=== PATIENT | female | born 1940 | race Caucasian/White ===

== ENCOUNTER 2020-01-04 06:36 | Outpatient (CLI) | payer MEDICARE, SELFPAY ==
[2020-01-04 08:14] LABS: Alanine Aminotransferase 25 U/L (4-35); Albumin Level 4.2 g/dL (3.5-5.1); Alkaline Phosphatase 51 U/L (38-126); Aspartate Amino Transferase 31 U/L (14-36); Bilirubin,Total 0.5 mg/dL (0.2-1.3); Blood Urea Nitrogen 15 mg/dL (7-17); Calcium 9.2 mg/dL (8.4-10.2); Carbon Dioxide 29 mmol/L (22-30); Chloride 104 mmol/L (98-107); Cholesterol 194 mg/dL (0-200); Estimated Glomerular Filt Rate > 60; Glucose 89 mg/dL (65-105); HDL Direct 54 mg/dL; Sodium 139 mmol/L (137-145); Triglycerides 71 mg/dL (<150)
[2020-01-04 08:25] LABS: LDL Cholesterol Direct 111 mg/dL
[2020-01-04 10:02] LABS: Vitamin D 25 Hydroxy 77.7 ng/mL
== END 2020-01-04 06:37 | disposition home or self-care (01) ==
PROVIDERS: PCP Emergency Medicine; Visit Provider Emergency Medicine
DX: E78.5 Hyperlipidemia, unspecified (principal); E55.9 Vitamin D deficiency, unspecified
CPT/HCPCS: 36415; 80053; 80061; 82306

== ENCOUNTER 2020-07-08 07:26 | Outpatient (CLI) | payer MEDICARE, SELFPAY ==
[2020-07-08 08:12] LABS: Alanine Aminotransferase 25 U/L (4-35); Albumin Level 4.4 g/dL (3.5-5.1); Alkaline Phosphatase 55 U/L (38-126); Anion Gap 5 mmol/L (8-16); Aspartate Amino Transferase 30 U/L (14-36); Bilirubin,Total 0.4 mg/dL (0.2-1.3); Blood Urea Nitrogen 11 mg/dL (7-17); Calcium 9.4 mg/dL (8.4-10.2); Carbon Dioxide 27 mmol/L (22-30); Chloride 104 mmol/L (98-107); Cholesterol 214 mg/dL (0-200); Estimated Glomerular Filt Rate > 60; Glucose 106 mg/dL (65-105); HDL Direct 59 mg/dL; Potassium 4.3 mmol/L (3.4-5.0); Sodium 136 mmol/L (137-145); Triglycerides 113 mg/dL (<150)
[2020-07-08 08:20] LABS: Vitamin D 25 Hydroxy 68.3 ng/mL
[2020-07-08 08:23] LABS: LDL Cholesterol Direct 127 mg/dL
== END 2020-07-08 07:27 | disposition home or self-care (01) ==
LOC: ANHLAB 07:29
PROVIDERS: PCP Emergency Medicine; Visit Provider Emergency Medicine
DX: E78.5 Hyperlipidemia, unspecified (principal); E55.9 Vitamin D deficiency, unspecified
CPT/HCPCS: 36415; 80053; 80061; 82306

== ENCOUNTER 2021-02-06 06:39 | Outpatient (CLI) | payer MEDICARE, SELFPAY ==
[2021-02-06 08:17] LABS: Alanine Aminotransferase 23 U/L (4-35); Albumin Level 4.1 g/dL (3.5-5.1); Alkaline Phosphatase 50 U/L (38-126); Anion Gap 4 mmol/L (8-16); Aspartate Amino Transferase 35 U/L (14-36); Bilirubin,Total 0.5 mg/dL (0.2-1.3); Blood Urea Nitrogen 18 mg/dL (7-17); Calcium 9.2 mg/dL (8.4-10.2); Carbon Dioxide 31 mmol/L (22-30); Chloride 105 mmol/L (98-107); Estimated Glomerular Filt Rate > 60; Glucose 94 mg/dL (65-105); Potassium 4.4 mmol/L (3.4-5.0); Sodium 140 mmol/L (137-145)
[2021-02-09 15:14] LABS: Vitamin D 1,25 (OH)2 Total 46 pg/mL (18-72); Vitamin D2 1,25 (OH)2 <8 pg/mL; Vitamin D3 1,25 (OH)2 46 pg/mL
== END 2021-02-06 06:40 | disposition home or self-care (01) ==
PROVIDERS: PCP Emergency Medicine; Visit Provider Emergency Medicine
DX: E55.9 Vitamin D deficiency, unspecified (principal); E78.5 Hyperlipidemia, unspecified
CPT/HCPCS: 36415; 80053; 82652

== ENCOUNTER 2021-03-08 07:33 | Outpatient (CLI) | payer MEDICARE, SELFPAY ==
--- NOTE | ~2021-03-08 | MM_ITS ---
EXAMINATION: MM screening [facility] BI w loren HISTORY: Screening mammogram TECHNIQUE: Craniocaudal and mediolateral oblique 3-D tomosynthesis images were obtained and synthetic 2-D images were generated. CAD analysis was submitted and interpreted. COMPARISON: 01/19/2019, 11/26/2017, 11/06/2016 BREAST PARENCHYMAL COMPOSITION: There are scattered areas of fibroglandular density. FINDINGS: There is no evidence of suspicious mass, calcification, or architectural distortion to sugg est malignancy in either breast. There has been no suspicious interval change. IMPRESSION: 1. No mammographic evidence of malignancy. 2. Recommend routine screening mammography in one year. BI-RADS Category 1: Negative Reviewed, dictated and finalized at location A.
--- NOTE | ~2021-03-08 | DEXA_ITS ---
Bone Density Report Name: Ann Marie Acuna Age: 80 Sex: Female Ethnicity: White Date of : 1940 Indication: osteopenia; monitoring treatment; height loss; prior fracture; Referring Provider: CAMRON MARIN Study: Bone densitometry was performed. Exam Date: March 08, 2021 Accession number: [id number] Bone Density: Region BMD T-score Z-score Classification AP Spine (L1-L4) 0.865 -1.7 0.9 Osteopenia Femoral Neck (Left) 0.506 -3.1 -0.9 Osteoporosis Total Hip (Left) 0.696 -2.0 -0.1 Osteopenia Total Hip Bilateral Avg 0.680 -2.2 -0.2 Osteopenia Femoral Neck (Right) 0.492 -3.2 -1.0 Osteoporosis Total Hip (Right) 0.663 -2.3 -0.3 Osteopenia World Health Organization criteria for BMD impression classify patients as: Normal (T-score at or above -1.0), Osteopenia (T-score between -1.0 and -2.5), or Osteoporosis (T-score at or below -2.5). 10-year Fracture Risk: FRAX not reported because: Some T-score for Spine Total or Hip Total or Femoral Neck at or below -2.5 Treated for osteoporosis Previous Exams: Region Exam Age BMD T-score BMD Change BMD Change Date g/cm2 vs Baseline vs Previous AP Spine(L1-L4) 03/08/2021 80 0.865 -1.7 0.233(36.9%)# 0.059(7.3%)* 01/19/2019 78 0.806 -2.2 0.174(27.6%)# 0.017(2.1%) 11/06/2016 75 0.789 -2.3 0.158(24.9%)# 0.071(9.9%)# 05/13/2014 73 0.718 -3.0 0.086(13.7%)* 0.086(13.7%)* 02/06/2012 71 0.632 -3.8 Total Hip(Left) 03/08/2021 80 0.696 -2.0 -0.010(-1.5%)# -0.030(-4.1%)* 01/19/2019 78 0.726 -1.8 0.020(2.8%)# -0.012(-1.7%) 11/06/2016 75 0.739 -1.7 0.032(4.5%)# -0.010(-1.3%)# 05/13/2014 73 0.748 -1.6 0.042(5.9%)* 0.042(5.9%)* 02/06/2012 71 0.707 -1.9 Total Hip(Right) 03/08/2021 80 0.663 -2.3 -0.014(-2.1%)# -0.032(-4.6%)* 01/19/2019 78 0.695 -2.0 0.018(2.7%)# -0.017(-2.3%) 11/06/2016 75 0.712 -1.9 0.035(5.1%)# 0.006(0.9%)# 05/13/2014 73 0.706 -1.9 0.028(4.2%)* 0.028(4.2%)* 02/06/2012 71 0.677 -2.2 *Denotes significance at 95% confidence level, LSC for AP Spine = 0.022 g/cm2, LSC for Total Hip = 0.027 g/cm2 Clinical Information Provided by Patient: Has had a low trauma fracture Is being treated for osteoporosis Has used the following medications: Fosamax (i.e. alendronate), Vitamin D Patient maximum height was 60.5 Menopause Age: 54 Onset of menses at age 13 Number of children 2 Impression: The oskar
== END 2021-03-08 07:34 | disposition home or self-care (01) ==
LOC: ANHIMG 07:37
PROVIDERS: PCP Emergency Medicine; Visit Provider Emergency Medicine
DX: Z12.31 Encounter for screening mammogram for malignant neoplasm of breast (principal); Z78.0 Asymptomatic menopausal state; M85.89 Other specified disorders of bone density and structure, multiple sites; M81.0 Age-related osteoporosis without current pathological fracture
CPT/HCPCS: 77063; 77067; 77080

== ENCOUNTER 2021-03-22 08:06 | Observation (INO) | payer OTHER, MEDICARE, SELFPAY ==
[2021-03-22] VITALS (8 sets, daily range): BP systolic 108–166; BP diastolic 63–93; PULSE 61–85; RESP 14–18; TEMP 36.4–36.6; O2SAT 93–98; BMI 24.4
--- NOTE | ~2021-03-22 | XR_ITS ---
EXAMINATION: XR hip LT min 3V w AP pelvis DATE: 03/22/2021 08:31 INDICATION: Left hip pain. Fall. TECHNIQUE: An anteroposterior view of the pelvis and 3 views of left hip were obtained. COMPARISON: None. FINDINGS: There is dextroscoliosis and moderate spondylosis of lumbar spine. There are fractures of l eft superior and inferior pubic rami. There is mild osteoarthritis of hips. Calcifications in the pel vis are likely from uterine fibroids. IMPRESSION: 1. Fractures of left superior and inferior pubic rami. 2. Mild osteoarthritis of the hips. Reviewed, dictated and finalized at location B.
--- NOTE | 2021-03-22 08:17 | ED.FALL ---
HPI - Fall General Chief Complaint: Fall Stated Complaint: fall- left hip pain Time Seen by Provider: 03/22/21 08:17 Source: patient Mode of arrival: wheelchair Limitations: no limitations History of Present Illness HPI Narrative: Patient is a 80-year-old female with a history of hypertension who presents for evaluation of left leg pain. Patient states that she was walking through [employer] this morning when a box that was sticking out into the aisle caused her to trip, losing her footing, and landing on her left hip. Patient reports pain in the left upper leg that is sharp, aching in nature and worse with movement. She denies any difficulty moving the knee, or pain in the knee joint. No lower back pain. No prodromal symptoms prior to the fall such as chest pain, shortness of breath or lightheadedness. Patient currently denies wanting any medication for pain, because pain is controlled as long as she is not moving. She can actively flex and extend the left leg without limitation. She denies any numbness or weakness. Patient denies head trauma or loss of consciousness. Related Data Home Medications Medication Instructions Recorded Confirmed Vitamin D3 2,000 unit BYMOUTH DAILY 08/30/19 08/30/19 omega 6-hoa-kjq-fish oil [Fish Oil] 1 cap PO DAILY 08/30/19 08/30/19 Allergies Allergy/AdvReac Type Severity Reaction Status Date / Time No Known Allergies Allergy Mild Verified 03/22/21 08:19 Review of Systems Review of Systems: Narrative: CONSTITUTIONAL: Denies fever CARDIOVASCULAR: Denies chest pain RESPIRATORY: Denies cough or dyspnea. GASTROINTESTINAL: Denies abdominal pain SKIN: Denies rash MUSCULOSKELETAL: Denies back pain, reports left upper leg pain NEUROLOGIC: Denies headache [facility] Past Medical History Medical History Vitamin D deficiency disease Family History Family History Mother Cerebrovascular accident, Onset Age: 84 Father Family history of tuberculosis, Onset Age: 57 Family history of liver disease, Onset Age: 57 Social History Social History Smoking status: Never smoker Alcohol intake: never Gender identity (if verbalized by the patient): Female Exam Narrative: Exam Narrative: GENERAL: Awake, alert, conversant HEAD: Normocephalic, atraumatic. EYES: PERRLA and EOMI. ENT: Nares clear, no rhinorrhea or epistaxis. Mucous membranes moist. NECK: Supple. CHEST: No respiratory distress, breathing even and non labored HEART: Regular rate, sinus rhythm ABDOMEN:Non distended, non tender EXTREMITIES: Normal range of motion. No edema. No limb length discrepancy. DP pulses are 2+ bilaterally. The left extremity is warm and well-perfused. No ecchymoses. No deformity. Pelvis is stable to anterior lateral compression, however there is pain with palpation. Patient has full flexion and extension of the left knee and left hip without limitation. There is pain with active range of motion. SKIN: Warm, dry, no rash. NEURO:No focal deficits. Alert and oriented x3 Course Vital Signs Vital signs: Vital Signs Temperature 36.4 C 03/22/21 08:15 Pulse Rate 72 03/22/21 08:15 Respiratory Rate 18 03/22/21 08:15 Blood Pressure 141/71 H 03/22/21 08:15 Pulse Oximetry 93 03/22/21 08:15 Temperature 36.4 C 03/22/21 08:15 Pulse Rate 64 03/22/21 15:56 Respiratory Rate 18 03/22/21 15:56 Blood Pressure 131/63 03/22/21 15:56 Pulse Oximetry 93 03/22/21 15:56 MDM - Fall MDM Narrative Medical decision making narrative: Patient presented for evaluation after mechanical fall at a nearby hardware store. Patient without any other prodromal symptoms. Patient with good range of motion on exam but this does elicit pain. Patient left extremity is neurovascularly intact, pelvis is stable however there i
[2021-03-22] MEDS: oxyCODONE/ACETAMINOPHEN (*CRX) 5-325 MG TABLET 1 TABLET PO (10:48)
[2021-03-22] MEDS: ONDANSETRON HCL ODT 4 MG TABLET PO (10:48)
[2021-03-22] MEDS: KETOROLAC (*BKC) 60 MG/2 ML VIAL 30 MG IM (10:48)
--- NOTE | 2021-03-22 10:48 | PCCCNOTE ---
Clinicals faxed to [facility] - patient mentioned this facility by name, otherwise she doesn't know any places and does not care where she goes
--- NOTE | 2021-03-22 10:59 | PCCCNOTE ---
clinicals faxed to [facility]
[2021-03-22 13:47] LABS: EDCOVIDSCREEN Negative (Negative)
[2021-03-22] MEDS: IBUPROFEN IV 800 MG/200 ML 800 MG/200 ML BAG 400 MG IVPB (17:45)
--- NOTE | 2021-03-22 19:24 | PC.NURSE ---
Report to ANETTE Watts. pt admitted to 259.
--- NOTE | 2021-03-22 21:30 | PM.IMHP ---
H&P: HPI History of Present Illness Date/Time: 03/22/21 21:30 female patient who came to the emergency room to be evaluated for left leg pain. The patient had been in [employer] who when she tripped over a box it was in the aisle of the store. The patient tripped over the box and landed on her left hip. The patient stated that she was not able to get up and stand up. She complained of severe left pain she said it radiated up into her pelvic area. She had no fever chills. No syncopal episode no dizziness. No lower back pain. She said that she did not hit her head or lose consciousness. No shortness of breath. She had no chest pain or shortness breath prior to tripping. Hip and pelvis x-ray was read as fractures of the left superior and inferior pubic rami. Mild osteoarthritis of the hips. The patient was recently diagnosed with osteoporosis as well. The patient is really wanting to go home but she is home by herself most the time. She has a son that lives with her but he is not always there. She has a son that lives down the street from her but he has to work during the day. The patient was given Percocet, Zofran, Toradol and ibuprofen in the emergency room. There was an attempt to place the patient into rehab but this was not achievable today. The patient is being admitted to be evaluated for rehab since she is not able to ambulate with the pelvic fracture. The patient would prefer to go home but feels that she will not be able to care for herself. The patient is being admitted to observation status on the date of service of 03/22/2021. Chief Complaint: Left hip pain after fall Review of Systems Review of Systems: All systems reviewed & are unremarkable except as noted in HPI and below Constitutional: Constitutional: Reports as per HPI and Reports no additional constitutional complaints Eyes: Eyes: Reports as per HPI and Reports no additional eye complaints ENT: Reports system reviewed and no additional complaints, except as documented and Reports Normal hearing present Cardiovascular: Cardiovascular: Reports no additional cardiovascular complaints Respiratory: Respiratory: Reports no additional respiratory complaints and Reports no additional respiratory complaints Gastrointestinal: Gastrointestinal: Reports as per HPI and Reports no additional gastrointestinal complaints Musculoskeletal: Musculoskeletal: Reports no additional musculoskeletal complaints Integumentary/Breasts: Skin/Breast: Reports system reviewed and no additional complaints, except as docu and Reports as per HPI Neurologic: Reports system reviewed and no additional complaints, except as documented, Reports as per HPI and Reports Normal hearing present Psychiatric: Psychiatric: Reports no additional psychiatric complaints and Reports as per HPI Endocrine: Endocrine: Reports no additional endocrine complaints Hematologic/Lymphatic: Hematologic/Lymphatic: Reports no additional hematologic/lymphatic complaints Allergic/Immunologic: Allergic/Immunologic: Reports no additional allergic/immunologic complaints PMFSH Past Medical History Medical History (Updated 03/22/21 @ 21:35 by Fidelina Peacock NP) Left wrist fracture Osteoporosis Vitamin D deficiency disease Surgical History Surgical History (Updated 03/22/21 @ 21:39 by Fidelina Peacock NP) H/O partial thyroidectomy Family History Family History Mother Cerebrovascular accident, Onset Age: 84 Father Family history of tuberculosis, Onset Age: 57 Family history of liver disease, Onset Age: 57 Social History Social History (Updated 03/22/21 @ 21:36 by Fidelina Peacock NP) Social History: The patient has 2 sons. She worked for [employer] in [facility] and is retired. The patient has 1 son living with her but is often times not at home. And another son that lives down the street from her. The
--- NOTE | 2021-03-22 21:36 | ADMGEN ---
This patient, Ann Marie Acuna, was admitted to 2 Medical Room 259-01. Patient/family oriented to hospital policies and general routines including ID bracelet, bed and alarms, visiting hours, pain management, procedures, bathroom and other care routines, personal items, smoking policy, room service/diet, and visiting hours. Information on how to activate the Rapid Response Team has been discussed. Patient/Family are encouraged to report perceived risks to care and to ask questions if they do not understand what they are told or what they should do.
[2021-03-23] MEDS: oxyCODONE/ACETAMINOPHEN (*CRX) 5-325 MG TABLET 1 TABLET PO ×2 (04:59→20:26)
[2021-03-23 06:00] VITALS: BP 124/52; PULSE 70; RESP 18; TEMP 36.8; O2SAT 97
[2021-03-23 06:02] LABS: Basophils Absolute Auto 0.1 K/mm3 (0.0-0.1); Basophils Percent Auto 1.1 % (0.2-1.2); Eosinophils Absolute Auto 0.1 K/mm3 (0-0.3); Eosinophils Percent Auto 1.3 % (0-4.4); Hematocrit 42.8 % (37.0-47.0); Hemoglobin 13.6 g/dL (12.0-15.0); Immature Granulocyte Absolute 0.08 K/mm3 (0.00-0.031); Immature Granulocyte Percent A 0.8 % (0-0.5); Lymphocytes Absolute Auto 2.29 K/mm3 (0.9-3.2); Lymphocytes Percent Auto 22.5 % (18.3-44.2); Mean Corpuscular HGB Conc 31.8 g/dl (32-36); Mean Corpuscular Hemoglobin 30.7 pg (26-34); Mean Corpuscular Volume 96.6 fl (80-100); Mean Platelet Volume 11.7 fl (7.4-10.4); Monocytes Absolute Auto 0.8 K/mm3 (0.1-0.6); Monocytes Percent Auto 7.7 % (2.6-8.5); Neutrophils Absolute Auto 6.8 K/mm3 (1.3-6.7); Neutrophils Percent Auto 66.6 % (45.5-73.1); Platelet Count Result 274 k/mm3 (150-375); Red Blood Count 4.43 M/mm3 (4.2-5.4); Red Cell Distribution Width 14.2 % (11.5-14.5); White Blood Count 10.2 K/mm3 (4.5-10.0)
[2021-03-23 06:16] LABS: Alanine Aminotransferase 21 U/L (4-35); Albumin Level 4.2 g/dL (3.5-5.1); Alkaline Phosphatase 46 U/L (38-126); Anion Gap 7 mmol/L (8-16); Aspartate Amino Transferase 39 U/L (14-36); Bilirubin,Total 1.1 mg/dL (0.2-1.3); Blood Urea Nitrogen 17 mg/dL (7-17); Calcium 8.8 mg/dL (8.4-10.2); Carbon Dioxide 28 mmol/L (22-30); Chloride 105 mmol/L (98-107); Estimated CRCL calculation 32 ml/min; Estimated Glomerular Filt Rate > 60; Glucose 106 mg/dL (65-105); Magnesium 1.9 mg/dL (1.6-2.3); Potassium 3.8 mmol/L (3.4-5.0); Sodium 140 mmol/L (137-145)
[2021-03-23 08:16] LABS: Free T4 Free Thyroxine Reflex 0.74 ng/dL (0.78-2.19)
[2021-03-23 08:26] VITALS: RESP 18; O2SAT 97
[2021-03-23] MEDS: OMEGA 3 POLYUNSAT FATTY ACIDS 1 GM CAP PO (08:26)
[2021-03-23] MEDS: CHOLECALCIFEROL 1,000 UNITS TABLET 2000 UNITS BY MOUTH (08:26)
[2021-03-23] MEDS: lisinopriL 20 MG TABLET PO (08:26)
--- NOTE | 2021-03-23 08:58 | PM.IMPN ---
Progress Note: A&P Assessment and Plan (1) Multiple pelvic fractures: Qualifiers: Encounter type: initial encounter Fracture alignment: with stable disruption of pelvic ring Fracture type: closed Qualified Code(s): S32.810A - Multiple fractures of pelvis with stable disruption of pelvic ring, initial encounter for closed fracture Code(s): S32.82XA - Multiple fractures of pelvis without disruption of pelvic ring, initial encounter for closed fracture Status: Acute Assessment and Plan: Patient is a 80-year-old woman with a history of osteoporosis, hypertension, who presented to the emergency room after sustaining a fall at [employer] on 03/22/2021. The patient was walking through the aisle when she tripped over a box and fell on her left side. The patient was unable to get herself up secondary to pain. She was brought to the emergency room for further evaluation and was found to have an acute fractures of left superior and inferior pubic rami. The patient was admitted under observation status for further evaluation, pain control, physical and occupational therapy, and consult to Orthopedic surgery. Talked to Dr. Rabago who will see the patient in consultation in place his recommendations on weight-bearing status and follow-up Continue oral pain control as needed Physical and occupational therapy orders have been placed Working on possible placement based on physical and occupational therapy results Continue monitoring. (2) Hypertension: Qualifiers: Hypertension type: essential hypertension Qualified Code(s): I10 - Essential (primary) hypertension Code(s): I10 - Essential (primary) hypertension Status: Chronic Assessment and Plan: Blood pressure stable this morning 127/65. Continue with lisinopril. Continue monitoring. (3) Osteoporosis: Code(s): M81.0 - Age-related osteoporosis without current pathological fracture Status: Chronic Assessment and Plan: Continue with Fosamax Time Spent With Patient Time with patient: 25 - 35 minutes Subjective Date/time seen: 03/23/21 08:58 Interval history: Date of service 03/23/2021: Patient is feeling well today. She is not having any pain to her left side if she does not move. She denies any lightheadedness, dizziness, syncope, or any other symptoms prior to her fall. She is eating and drinking without any issues today. She denies any chest pain, shortness of breath, cough, cold symptoms, dysuria, frequent urination, dark urine, nausea, vomiting, abdominal pain, leg swelling, calf pain or any other symptoms at this time. Review of Systems Review of Systems: All systems reviewed & are unremarkable except as noted in HPI and below Exam Narrative: Exam Narrative: General: 80-year-old woman sitting up in bed eating breakfast. Appears comfortable. In no acute distress. Skin: No jaundice or cyanosis. Good skin turgor. Neck: Full range of motion. Supple. Respiratory: Lungs are clear to auscultation bilaterally. No bony chest wall tenderness. Cardiovascular: The heart has a regular rate and rhythm without murmur. No carotid bruits. Lower extremities: NVID to left lower extremity. No lower extremity edema. Distal pulses are easily palpated. No calf tenderness to palpation. Gastrointestinal: The abdomen is soft, nontender and nondistended with active bowel sounds. Psychiatric: Lucid and oriented. Memory intact. Neurologic: No focal deficits. Speech is clear. No facial drooping. Objective Data Vital Signs Vital Signs: Vital Signs - 24 hr 03/22/21 08:59 03/22/21 10:49 03/22/21 11:23 Temperature Pulse Rate 66 68 85 Respiratory Rate 18 17 15 Blood Pressure 138/77 166/70 H 108/93 H Pulse Oximetry 93 96 98 03/22/21 15:56 03/22/21 18:57
--- NOTE | 2021-03-23 09:31 | PM.CNOR ---
Assessment and Plan Assessment and plan (1) Multiple pelvic fractures: Qualifiers: Encounter type: initial encounter Fracture alignment: with stable disruption of pelvic ring Fracture type: closed Qualified Code(s): S32.810A - Multiple fractures of pelvis with stable disruption of pelvic ring, initial encounter for closed fracture Code(s): S32.82XA - Multiple fractures of pelvis without disruption of pelvic ring, initial encounter for closed fracture Status: Acute Assessment and Plan: History, exam and radiographs reviewed with the patient. Radiographs of the left hip reveal fractures of left superior and inferior pubic rami. The fracture type and injury as well as radiographs discussed with the patient and family. Operative and nonoperative treatment options reviewed. The patient elects for non operative treatment. Risk of nonunion, malunion or late displacement discussed. Stiffness, pain and possible dysfunction of the joint discussed. Fracture precautions and activity restrictions reviewed. The patient verbalizes understanding. Recommend weight-bearing as tolerated and pain control. Recommended ice and formal physical therapy and occupational therapy to help with mobilization. Patient would likely benefit from acute rehab as she currently lives at home with her son who is not with her at all times. Dispo: TRC vs. Acute Rehab when medically stable Follow up in 6 weeks. Thank you for allowing us to assist in the care of this patient. History of Present Illness HPI Consult date: 03/23/21 Requesting physician: Neli Castro PA-C Consult reason: other ( Inferior and superior pelvic fracture) Chief complaint: Pelvic Fracture Narrative: Orthopedic consult for this 80-year-old female who fell while at [employer] yesterday with her son. Per patient report, she was walking with a cart when she hit a box that seemed to be sticking out in the middle of the [place] with a tile protruding from it. This caused her to fall to the ground. She was unable to bear weight status post fall. She had extreme pain in the left lower extremity. She utilized a electric wheelchair to get to her car and then her son drove her to the emergency room. She denies loss of consciousness. Review of Systems Constitutional: Constitutional: Reports no additional constitutional complaints, Denies chills, Denies fatigue, Denies fever(s), Denies headache(s) and Denies weakness Eyes: Eyes: Denies change in vision ENT: Reports Normal hearing present and Denies headache(s) Cardiovascular: Cardiovascular: Denies chest pain and Denies dyspnea Respiratory: Respiratory: Denies cough, Denies dyspnea and Denies wheezing Gastrointestinal: Gastrointestinal: Denies constipation, Denies diarrhea, Denies nausea and Denies vomiting Genitourinary: Genitourinary: Denies hematuria, Denies dysuria and Denies urinary urgency Musculoskeletal: Musculoskeletal: Reports as per HPI, Denies numbness and Denies tingling Integumentary/Breasts: Skin/Breast: Reports as per HPI Neurologic: Reports as per HPI, Reports Normal hearing present, Denies headache(s), Denies numbness, Denies tingling and Denies weakness Psychiatric: Psychiatric: Reports no additional psychiatric complaints Endocrine: Endocrine: Reports no additional endocrine complaints and Denies fatigue Hematologic/Lymphatic: Hematologic/Lymphatic: Reports no additional hematologic/lymphatic complaints Allergic/Immunologic: Allergic/Immunologic: Reports no additional allergic/immunologic complaints and Denies wheezing PMFSH Past Medical History Medical History Left wrist fracture Osteoporosis Vitamin D deficiency disease Surgical History Surgical History H/O partial thyroidectomy Family History Family History Mother C
[2021-03-23] MEDS: DOCUSATE SODIUM 100 MG CAPSULE PO ×2 (10:12→20:23)
[2021-03-23] MEDS: ACETAMINOPHEN 325 MG TABLET 650 MG PO ×3 (10:12→20:23)
[2021-03-23 14:00] VITALS: BP 117/48; PULSE 71; RESP 18; TEMP 36.7; O2SAT 94
[2021-03-23 21:07] VITALS: BP 112/48; PULSE 87; RESP 18; TEMP 36.8; O2SAT 99
[2021-03-24] MEDS: ACETAMINOPHEN 325 MG TABLET 650 MG PO ×3 (03:08→15:47)
[2021-03-24 06:00] VITALS: BP 119/46; PULSE 59; RESP 16; TEMP 36.4; O2SAT 97
[2021-03-24] MEDS: ENOXAPARIN 40 MG/0.4 ML SYRINGE SUB-Q (09:22)
[2021-03-24] MEDS: CHOLECALCIFEROL 1,000 UNITS TABLET 2000 UNITS BY MOUTH (09:22)
[2021-03-24] MEDS: lisinopriL 20 MG TABLET PO (09:22)
[2021-03-24] MEDS: OMEGA 3 POLYUNSAT FATTY ACIDS 1 GM CAP PO (09:22)
[2021-03-24 09:24] VITALS: BP 132/72
[2021-03-24] MEDS: DOCUSATE SODIUM 100 MG CAPSULE PO ×2 (09:30→20:42)
[2021-03-24 14:00] VITALS: BP 119/53; PULSE 74; RESP 20; TEMP 36.4; O2SAT 97
--- NOTE | 2021-03-24 15:23 | PM.IMPN ---
Progress Note: A&P Assessment and Plan (1) Multiple pelvic fractures: Qualifiers: Encounter type: initial encounter Fracture alignment: with stable disruption of pelvic ring Fracture type: closed Qualified Code(s): S32.810A - Multiple fractures of pelvis with stable disruption of pelvic ring, initial encounter for closed fracture Code(s): S32.82XA - Multiple fractures of pelvis without disruption of pelvic ring, initial encounter for closed fracture Status: Acute Assessment and Plan: Patient is a 80-year-old woman with a history of osteoporosis, hypertension, who presented to the emergency room after sustaining a fall at [employer] on 03/22/2021. The patient was walking through the aisle when she tripped over a box and fell on her left side. The patient was unable to get herself up secondary to pain. She was brought to the emergency room for further evaluation and was found to have an acute fractures of left superior and inferior pubic rami. The patient was admitted under observation status for further evaluation, pain control, physical and occupational therapy, and consult to Orthopedic surgery. Talked to Dr. Gem Hook who saw the patient and recommendations on weight-bearing as tolerated and follow-up in 6 weeks. Continue oral pain control as needed Physical and occupational therapy orders have been placed Working on possible placement based on physical and occupational therapy results Continue monitoring. (2) Hypertension: Qualifiers: Hypertension type: essential hypertension Qualified Code(s): I10 - Essential (primary) hypertension Code(s): I10 - Essential (primary) hypertension Status: Chronic Assessment and Plan: Blood pressure stable this morning 119/46. Continue with lisinopril. Continue monitoring. (3) Osteoporosis: Code(s): M81.0 - Age-related osteoporosis without current pathological fracture Status: Chronic Assessment and Plan: Continue with Fosamax Time Spent With Patient Time with patient: 25 - 35 minutes Subjective Date/time seen: 03/24/21 15:24 Interval history: Date of service 03/24/2021: Patient is feeling well today, still having increased pain when she gets up to walk. She denies any lightheadedness, dizziness, syncope, or any other symptoms prior to her fall. She is eating and drinking without any issues today. She denies any chest pain, shortness of breath, cough, cold symptoms, dysuria, frequent urination, dark urine, nausea, vomiting, abdominal pain, leg swelling, calf pain or any other symptoms at this time. Review of Systems Review of Systems: All systems reviewed & are unremarkable except as noted in HPI and below Exam Narrative: Exam Narrative: General: 80-year-old woman sitting up in the chair watching TV. Appears comfortable. In no acute distress. Skin: No jaundice or cyanosis. Good skin turgor. Neck: Full range of motion. Supple. Respiratory: Lungs are clear to auscultation bilaterally. No bony chest wall tenderness. Cardiovascular: The heart has a regular rate and rhythm without murmur. No carotid bruits. Lower extremities: Ecchymosis noted to left lateral hip. No open wounds. TTP. NVID to left lower extremity. No lower extremity edema. Distal pulses are easily palpated. No calf tenderness to palpation. Gastrointestinal: The abdomen is soft, nontender and nondistended with active bowel sounds. Psychiatric: Lucid and oriented. Memory intact. Neurologic: No focal deficits. Speech is clear. No facial drooping. Objective Data Vital Signs Vital Signs: Vital Signs - 24 hr 03/23/21 21:07 03/24/21 06:00 03/24/21 09:24 Temperature 98.3 F 97.6 F Pulse Rate 87 59 L Respiratory Rate 18 16 Blood Pressure 112/48 L 119/46 L 132/72 Pulse Oxime
[2021-03-24] MEDS: oxyCODONE/ACETAMINOPHEN (*CRX) 5-325 MG TABLET 1 TABLET PO (20:42)
[2021-03-24 21:22] VITALS: BP 118/49; PULSE 65; RESP 18; TEMP 36.9; O2SAT 97
[2021-03-25] MEDS: ACETAMINOPHEN 325 MG TABLET 650 MG PO ×2 (02:40→09:00)
[2021-03-25 06:00] VITALS: BP 142/58; PULSE 78; RESP 16; TEMP 36.6; O2SAT 97
[2021-03-25] MEDS: ALENDRONATE SODIUM 70 MG TABLET PO (06:29)
[2021-03-25] MEDS: ENOXAPARIN 40 MG/0.4 ML SYRINGE SUB-Q (08:59)
[2021-03-25] MEDS: CHOLECALCIFEROL 1,000 UNITS TABLET 2000 UNITS BY MOUTH (09:00)
[2021-03-25] MEDS: lisinopriL 20 MG TABLET PO (09:00)
[2021-03-25] MEDS: OMEGA 3 POLYUNSAT FATTY ACIDS 1 GM CAP PO (09:01)
[2021-03-25] MEDS: DOCUSATE SODIUM 100 MG CAPSULE PO (09:01)
--- NOTE | 2021-03-25 10:28 | PM.DS ---
DS: Admitting Diagnosis Admitting Diagnosis Admitting Diagnosis: Pelvic pain/Fall DS: Discharge Diagnosis Discharge Diagnosis (1) Multiple pelvic fractures: Qualifiers: Encounter type: initial encounter Fracture alignment: with stable disruption of pelvic ring Fracture type: closed Qualified Code(s): S32.810A - Multiple fractures of pelvis with stable disruption of pelvic ring, initial encounter for closed fracture Code(s): S32.82XA - Multiple fractures of pelvis without disruption of pelvic ring, initial encounter for closed fracture Status: Acute Assessment and Plan: Patient is a 80-year-old woman with a history of osteoporosis, hypertension, who presented to the emergency room after sustaining a fall at [employer] on 03/22/2021. The patient was walking through the aisle when she tripped over a box and fell on her left side. The patient was unable to get herself up secondary to pain. She was brought to the emergency room for further evaluation and was found to have an acute fractures of left superior and inferior pubic rami. The patient was admitted under observation status for further evaluation, pain control, physical and occupational therapy, and consult to Orthopedic surgery. The patient was seen by Dr. Gem Hook's Nurse Practitioner who saw the patient and recommendations on weight-bearing as tolerated and follow-up in 6 weeks. The patient has only been taking Tylenol as needed for her pain. She has been walking with therapy around in the room with a walker with an increase of her pain but otherwise doing well. She walked 75ft is a contact guard. The patient's son is at bedside and they feel like she can go home with home health. Her son is going to buy a wheeled walker right now prior to her discharge and she can continue taking her oral Tylenol as needed for pain at home. Given returned emergency room instructions. The patient understands and agrees the plan all questions answered. She does not want any narcotic pain medications upon discharge. (2) Hypertension: Qualifiers: Hypertension type: essential hypertension Qualified Code(s): I10 - Essential (primary) hypertension Code(s): I10 - Essential (primary) hypertension Status: Chronic Assessment and Plan: Blood pressure stable this morning 110/52. Continue with lisinopril. (3) Osteoporosis: Code(s): M81.0 - Age-related osteoporosis without current pathological fracture Status: Chronic Assessment and Plan: Continue with Fosamax DS: Summary Hospital Course Hospital Course: See above Status at Discharge Cognitive/behavioral status at discharge: Stable, improved. Time Spent with Patient Time attestation: Total time spent providing and/or coordinating discharge services: 38 Time spent: Greater than 30 minutes Exam Narrative: Exam Narrative: General: 80-year-old woman walking with Physical Therapy with her walker. Appears comfortable. In no acute distress. Skin: No jaundice or cyanosis. Good skin turgor. Neck: Full range of motion. Supple. Respiratory: Lungs are clear to auscultation bilaterally. No bony chest wall tenderness. Cardiovascular: The heart has a regular rate and rhythm without murmur. Lower extremities: Ecchymosis noted to left lateral hip. No open wounds. TTP. NVID to left lower extremity. No lower extremity edema. Distal pulses are easily palpated. No calf tenderness to palpation. Gastrointestinal: The abdomen is soft, nontender and nondistended with active bowel sounds. Psychiatric: Lucid and oriented. Memory intact. Neurologic: No focal deficits. Speech is clear. No facial drooping. Discharge Plan Discharge Attending physician on discharge: Clement Razo M.A. Consulting providers: Gem
[2021-03-25 19:46] LABS: SARS-CoV-2 RNA PCR Negative
== END 2021-03-25 13:15 | disposition home health service (06) ==
LOC: ANHED 17:37 → ANH2MED 18:49
PROVIDERS: Nurse Practitioner; Admitting Provider Internal Medicine; Emergency Provider Emergency Medicine; PCP Emergency Medicine; Visit Provider Physician Assistant
DX: S32.810A Multiple fractures of pelvis with stable disruption of pelvic ring, initial encounter for closed fracture (principal); I10 Essential (primary) hypertension; E55.9 Vitamin D deficiency, unspecified; W01.0XXA Fall on same level from slipping, tripping and stumbling without subsequent striking against object, initial encounter; M81.0 Age-related osteoporosis without current pathological fracture; Z20.822 Contact with and (suspected) exposure to COVID-19
CPT/HCPCS: 36415; 73502; 80053; 83735; 84439; 84443; 85025; 87426; 96365; 96372; 97110; 97116; 97161; 97165; 97535; 99285; A9270; C9803; G0378; J1650; J1741; J1885; U0003; U0005

== ENCOUNTER 2021-04-11 10:20 | Emergency (ER) | payer MEDICARE, SELFPAY ==
--- NOTE | ~2021-04-11 | XR_ITS ---
EXAMINATION: XR hip BI 2V w AP pelvis EXAM DATE: 04/11/2021 11:23 INDICATION: Pelvic pain, recent fracture. TECHNIQUE: Each hip imaged independently (separate right and also left hip) 'frog leg' and frontal p rojections for interpretation. Frontal projection pelvis. Comparison is made to prior examination fr 03/22/2021. FINDINGS: No radiographic evidence of hip avascular necrosis. Again there are acute closed posttrau matic displaced left superior and inferior rami fractures, position does not appear significantly mik nged. There are no hip fractures. Pelvic calcification could indicate fibroid. Mild symmetric bilater al hip osteoarthritis. IMPRESSION: Left rami superior, inferior fractures with displacement, position unchanged. No definite corresponding sacral fracture, but if there is sacral tenderness or pain consider pelvic CT without contrast for better evaluation. Reviewed, dictated and finalized at location B. IMPRESSION: Left rami superior, inferior fractures with displacement, position unchanged. No definite corresponding sacral fracture, but if there is sacral te nderness or pain consider pelvic CT without contrast for better evaluation.
--- NOTE | ~2021-04-11 | US_ITS ---
EXAMINATION: US venous doppler LE EXAM DATE: 04/11/2021 11:20 INDICATION: Leg edema, recent pelvic fracture . TECHNIQUE: Multiple grayscale, color flow and Doppler images of the lower extremity deep venous syste ms bilaterally were obtained and reviewed. There is no prior study for comparison. FINDINGS: Right side: The right common femoral, femoral and profunda veins demonstrate normal color flow, respi ratory variation, augmentation and compressibility. Compressibility, color flow confirmed within the right popliteal, posterior tibial, peroneal, and greater saphenous veins. Left side: The left common femoral, femoral and profunda veins demonstrate normal color flow, respira tory variation, augmentation and compressibility. Compressibility, color flow confirmed within the l eft popliteal, posterior tibial, peroneal, and greater saphenous veins. IMPRESSION: 1. No lower extremity deep venous thrombosis bilaterally. Reviewed, dictated and finalized at location B.
[2021-04-11 10:23] VITALS: BP 146/50; PULSE 84; RESP 18; TEMP 36.6; O2SAT 95
--- NOTE | 2021-04-11 10:57 | ED.GENADULT ---
HPI - General Adult General Chief complaint: Unspecified Stated complaint: pelvic pain/leg swelling Time Seen by Provider: 04/11/21 10:44 Source: patient Mode of arrival: ambulatory (With walker) Limitations: no limitations History of Present Illness HPI narrative: This is a 80 year old female that presents to the ER for worsening pain noted over the last couple of days. Reports she recently sustained a pelvic fracture from a ground-level fall. She was discharged home with physical and occupational therapy. She has been doing her physical therapy with worsening pain. No new injuries or trauma. Reports the pain is in the pelvis and musculature around her buttocks. It is worse with certain movement and when she sits down. She has been taking Tylenol for pain with little relief. Also reports she has noted some swelling in her lower legs over the last couple of days. Denies fever, chest pain, or shortness of breath. Related Data Home Medications Medication Instructions Recorded Confirmed Vitamin D3 2,000 unit BYMOUTH DAILY 08/30/19 03/22/21 omega 3-zlf-ggf-fish oil [Fish Oil] 1 cap PO DAILY 08/30/19 03/22/21 lisinopril [Prinivil] 20 mg PO DAILY 03/22/21 03/22/21 Allergies Allergy/AdvReac Type Severity Reaction Status Date / Time No Known Allergies Allergy Mild Verified 04/11/21 10:27 Review of Systems Review of Systems: Narrative: CONSTITUTIONAL: Denies fever CARDIOVASCULAR: Reports edema. Denies chest pain RESPIRATORY: Denies dyspnea. MUSCULOSKELETAL: Reports back pain, joint pain, and myalgia. NEUROLOGIC: Denies numbness, or weakness. All systems reviewed & are unremarkable except as noted in HPI and below PMFSH Past Medical History Medical History Left wrist fracture Osteoporosis Vitamin D deficiency disease Surgical History Surgical History H/O partial thyroidectomy Family History Family History Mother Cerebrovascular accident, Onset Age: 84 Father Family history of tuberculosis, Onset Age: 57 Family history of liver disease, Onset Age: 57 Social History Social History (Reviewed 03/23/21 @ 12:48 by YONATAN Kevin Social History: The patient has 2 sons. She worked for [employer] in [facility] and is retired. The patient has 1 son living with her but is often times not at home. And another son that lives down the street from her. The patient desires to have the 2 sons as her durable power staff attorney for healthcare. The patient desires to be a full code. The patient is a lifelong nonsmoker. Does not use any alcohol marijuana or illicit drugs. Smoking status: Never smoker Alcohol intake: never Substance use: never Gender identity (if verbalized by the patient): Female Spiritual care concerns: No Exam Narrative: Exam Narrative: GENERAL: Well-appearing, well-nourished, and in no acute distress. HEAD: Normocephalic, atraumatic. EYES: EOMI. CHEST: Clear to auscultation. No respiratory distress. No wheezes rales or rhonchi HEART: Regular rate and rhythm. No murmur heard. Normal peripheral pulses. EXTREMITIES: Normal range of motion. 1+ pitting edema to the bilateral lower extremities. No erythema or warmth SKIN: Warm, dry, no rash. NEURO: No focal deficits. Alert and oriented x3. Normal gait PSYCH: Normal mood and affect Course Consultations Consultation #1: Spoke with Dr. Gonzalez about patient and work-up who will follow up in clinic. Date: 04/11/21 Time: 13:47 Vital Signs Vital signs: Vital Signs Temperature 97.8 F 04/11/21 10:23 Pulse Rate 84 04/11/21 10:23 Respiratory Rate 18 04/11/21 10:23 Blood Pressure 146/50 H 04/11/21 10:23 Pulse Oximetry 95 04/11/21 10:23 Temperature 97.8 F 04/11/21 10:23 Pulse Rate 84 04/11/21 10:23 Respiratory Rat
[2021-04-11] MEDS: traMADol HCL (*CRX) 50 MG TABLET 25 MG PO (11:39)
--- NOTE | 2021-04-11 11:39 | PCCCNOTE ---
Spoke with patient regarding her Plan of Care. Patient states that she has continued pain from her pelvic fracture and hasn't been able to get in with her physician to address the pain. Discussed possibility of short stay for rehab and unlikelihood that insurance would cover this as she is able to function fairly independently at home and does have someone at home who is able to assist her. Discuss her current physical therapy in her home which only has 2 sessions left and encouraged her to speak with her physical therapist and/or physician to potentially extend her treatment plan. Relayed the above to patient's nurse and provider.
[2021-04-11 11:50] LABS: Basophils Percent Auto 0.6 % (0.2-1.2); Eosinophils Percent Auto 0.4 % (0-4.4); Hematocrit 35.5 % (37.0-47.0); Hemoglobin 11.4 g/dL (12.0-15.0); Immature Granulocyte Absolute 0.07 K/mm3 (0.00-0.031); Lymphocytes Absolute Auto 1.03 K/mm3 (0.9-3.2); Lymphocytes Percent Auto 14.6 % (18.3-44.2); Mean Corpuscular HGB Conc 32.1 g/dl (32-36); Mean Corpuscular Volume 96.5 fl (80-100); Mean Platelet Volume 11.1 fl (7.4-10.4); Monocytes Absolute Auto 0.5 K/mm3 (0.1-0.6); Monocytes Percent Auto 6.4 % (2.6-8.5); Neutrophils Absolute Auto 5.5 K/mm3 (1.3-6.7); Platelet Count Result 320 k/mm3 (150-375); Red Blood Count 3.68 M/mm3 (4.2-5.4); Red Cell Distribution Width 14.8 % (11.5-14.5); White Blood Count 7.1 K/mm3 (4.5-10.0)
[2021-04-11 11:53] LABS: Anion Gap 9 mmol/L (8-16); Blood Urea Nitrogen 15 mg/dL (7-17); Calcium 9.3 mg/dL (8.4-10.2); Carbon Dioxide 23 mmol/L (22-30); Chloride 106 mmol/L (98-107); Estimated CRCL calculation 41 ml/min; Estimated Glomerular Filt Rate > 60; Glucose 109 mg/dL (65-105); Potassium 3.5 mmol/L (3.4-5.0); Sodium 138 mmol/L (137-145)
[2021-04-11 12:02] LABS: NT Pro B Type Natriuretic Pept 192 pg/mL (5-100)
[2021-04-11 12:21] LABS: INR 0.9
[2021-04-11 12:22] LABS: Partial Thromboplastin Time 27.7 SECONDS (22.3-36.8)
[2021-04-11 14:39] VITALS: BP 135/67; PULSE 80; RESP 18; O2SAT 96
== END 2021-04-11 14:24 | disposition home or self-care (01) ==
PROVIDERS: Physician Assistant; Emergency Provider Emergency Medicine; PCP Emergency Medicine
DX: S32.82XD Multiple fractures of pelvis without disruption of pelvic ring, subsequent encounter for fracture with routine healing (principal); R60.0 Localized edema; E89.0 Postprocedural hypothyroidism; M81.0 Age-related osteoporosis without current pathological fracture; E55.9 Vitamin D deficiency, unspecified; M16.0 Bilateral primary osteoarthritis of hip; W19.XXXD Unspecified fall, subsequent encounter
CPT/HCPCS: 36415; 73521; 80048; 83880; 85025; 85610; 85730; 93970; 99284; A9270

== ENCOUNTER 2021-04-13 10:32 | Observation (INO) | payer OTHER, MEDICARE, SELFPAY ==
--- NOTE | ~2021-04-13 | CT_ITS ---
EXAMINATION: CT lumbar spine wo con DATE: 04/13/2021 11:39 INDICATION: Low back pain TECHNIQUE: Computed tomography (CT) of the lumbar spine was performed without intravenous contrast. T he dose-length product was 629.84 mGy-cm. Automated exposure control and iterative reconstruction guillaume hnique were employed. COMPARISON: 04/11/2021 FINDINGS: There are bilateral sacral insufficiency fractures. There is disc narrowing at L5-S1. There is mild facet degenerative change at L5-S1. There are calcified uterine fibroids there is partially visualized Bochdalek hernia containing nonobstructed bowel. There are nonobstructing left renal stone s. IMPRESSION: 1. Bilateral sacral insufficiency fractures. 2: Mild-moderate lumbar spondylosis. 3: Nonobstructing left nephrolithiasis. Reviewed, dictated and finalized at location A.
--- NOTE | ~2021-04-13 | CT_ITS ---
EXAMINATION: CT pelvis wo con DATE: 04/13/2021 11:39 INDICATION: Previous pelvic fracture presenting with pain to the bilateral legs and buttocks. TECHNIQUE: High resolution computed tomography (CT) of the pelvis was performed without intravenous c ontrast. Additional sagittal and coronal reconstructions were performed. Automated exposure control a nd iterative reconstruction technique were employed. The dose-length product was 140.44 mGy-cm. COMPARISON: None FINDINGS: Mildly displaced mildly comminuted fractures at the medial aspect of the left superior and inferior p ubic rami which at the superior pubic ramus extends medially into the right pubic body. There is an a dditional mildly angulated nondisplaced fracture at the junction of the left inferior pubic ramus and the left ischium. There is small amount of nonbridging callus formation along the margins of the fra ctures consistent with subacute chronicity. There is additional small amount of callus formation mark anthony g the anterior margins of bilateral nondisplaced sagittally oriented fractures of the left and right sacral ala. No definitive productive changes of healing along a nondisplaced minimally angulated frac ture extending horizontally across the cephalad aspect of the S2 vertebral body. No other fractures identified. Lucent L5 hemangioma. Mild osteoarthritis at the bilateral hip and sac roiliac joints. Coarse calcifications associated with a 3.7 cm fibroid arising from the posterior cata[place]ba rine fundus. Bladder is normal. Appendix is normal. A few diverticula without adjacent inflammatory c hange along the sigmoid colon. Gallbladder is dilated to 5 cm in diameter with tiny calcified gallsto marge along the dependent wall of the gallbladder fundus. No wall thickening or pericholecystic from 3 change to suggest acute cholecystitis. No pathologically enlarged pelvic or inguinal lymphadenopathy. IMPRESSION: 1. Small amount of nonbridging callus formation at the mildly displaced, mildly comminuted subacute f ractures of the left superior and inferior pubic rami. 2. Minimally displaced sagittally oriented fracture of the left and right sacral ala and transverse f racture across the S2 vertebral body. 3. Minimal cholelithiasis within the dilated gallbladder which is without wall thickening or perichol ecystic inflammatory change to suggest acute cholecystitis. 4. Fibroid uterus. Reviewed, dictated and finalized at location A. IMPRESSION: 1. Small amount of nonbridging callus formation at the mildly displaced, mildly comminuted subacute fractures of the left superior and inferior pubic rami. 2. Minimally displaced sagittally oriented fracture of the left and right sacra l ala and transverse fracture across the S2 vertebral body. 3. Minimal cholelithiasis within the dilated gallbladder which is without wall thickening or pericholecystic inflammatory change to suggest acute cholecystiti s. 4. Fibroid uterus.
--- NOTE | ~2021-04-13 | MR_ITS ---
EXAMINATION: MR lumbar spine wo con DATE: 04/17/2021 14:08 INDICATION: Sacral and pelvic fractures. Low back pain. Bilateral leg pain. TECHNIQUE: Magnetic resonance imaging (MRI) of the lumbar spine was performed without intravenous con trast. Sequences included sagittal T2-weighted FSE, sagittal T2-weighted FS FSE, sagittal T1-weighted FSE, and axial T2-weighted FSE. COMPARISON: CT lumbar spine 04/13/2021 FINDINGS: There is 10 degrees dextroscoliosis of lumbar spine. There are fractures of the bilateral s acral ala and S2 body. Vertebral body heights are normal. There is mildly decreased disc height at L1 -L2 and L2-L3 and moderately decreased disc height at L5-S1. There are scattered areas of fat replace ment in the bone marrow. The distal spinal cord signal intensity is normal. The conus medullaris is a t T12-L1. The gallbladder is distended. The following disc levels are specifically discussed: L1-L2: The disc is bulging with superimposed right central extrusion. There is mild left facet joint osteoarthritis. There is mild bilateral neural foraminal stenosis. There is mild central canal stenos is. L2-L3: The disc is bulging and has an annular fissure. There is severe left facet joint osteoarthriti s. There is mild bilateral neural foraminal stenosis. There is mild central canal stenosis. L3-L4: The disc is bulging with superimposed left central extrusion. There is mild bilateral facet sofy int osteoarthritis. There is mild bilateral neural foraminal stenosis. There is mild central canal st enosis. L4-L5: The disc is bulging and has an annular fissure. There is severe bilateral facet joint osteoart hritis. There is mild bilateral neural foraminal stenosis. There is mild central canal stenosis. L5-S1: The disc is bulging and has an annular fissure. There is severe right and moderate left facet joint osteoarthritis. There is mild bilateral neural foraminal stenosis. There is mild central canal stenosis. IMPRESSION: 1. Subacute sacral insufficiency fractures. 2. Moderate lumbar spondylosis. 3. Lumbar dextroscoliosis. 4. Gallbladder distention, which may be secondary to fasting. Correlate with physical exam for eviden ce of acute cholecystitis. Reviewed, dictated and finalized at location A. IMPRESSION: 1. Subacute sacral insufficiency fractures. 2. Moderate lumbar spondylosis. 3. Lumbar dextroscoliosis. 4. Gallbladder distention, which may be secondary to fasting. Correlate with ph ysical exam for evidence of acute cholecystitis.
[2021-04-13 10:31] VITALS: BP 141/66; PULSE 74; RESP 16; TEMP 36.3; O2SAT 99
--- NOTE | 2021-04-13 11:05 | ED.EXTPRO ---
HPI - Extremity Problem General Chief complaint: Extremity Problem,Nontraumatic Stated complaint: pain bilateral legs and buttocks Time Seen by Provider: 04/13/21 11:05 History of Present Illness HPI Narrative: 80 yo female presents to the ED for leg and buttock pain. She had a fractures of the left superior and inferior rami on 03/21 2/2 a fall. She was discharged home after a brief stay in the hospital. She was originally using tylenol for pain control. Over the past several days the pain has become more severe to the point that she is unable to get out of bed. She was seen here 2 days ago and had negative bilateral venous doppler. She is now on oxycodone-acetaminophen without relief of her pain. Related Data Home Medications Medication Instructions Recorded Confirmed Vitamin D3 2,000 unit BYMOUTH DAILY 08/30/19 04/13/21 omega 6-jgu-zsz-fish oil [Fish Oil] 1 cap PO DAILY 08/30/19 04/13/21 lisinopril [Prinivil] 20 mg PO DAILY 03/22/21 04/13/21 Allergies Allergy/AdvReac Type Severity Reaction Status Date / Time No Known Allergies Allergy Mild Verified 04/13/21 15:46 Review of Systems Review of Systems: All systems reviewed & are unremarkable except as noted in HPI and below Constitutional: Constitutional: Denies chills, Denies fever(s) and Denies weakness Cardiovascular: Cardiovascular: Denies chest pain Respiratory: Respiratory: Denies dyspnea Gastrointestinal: Gastrointestinal: Denies nausea and Denies vomiting Genitourinary: Genitourinary: Reports no additional female genitourinary complaints Musculoskeletal: Musculoskeletal: Reports as per HPI Neurologic: Denies confusion, Denies dizziness and Denies weakness [facility] Past Medical History Medical History (Updated 04/16/21 @ 12:30 by Sharif Diaz MD) Anemia Hypertension Left wrist fracture Osteoporosis Vitamin D deficiency disease Surgical History Surgical History H/O partial thyroidectomy Family History Family History Mother Cerebrovascular accident, Onset Age: 84 Father Family history of tuberculosis, Onset Age: 57 Family history of liver disease, Onset Age: 57 Social History Social History Social History: The patient has 2 sons. She worked for [employer] in [facility] and is retired. The patient has 1 son living with her but is often times not at home. And another son that lives down the street from her. The patient desires to have the 2 sons as her durable power shipping and receiving for healthcare. The patient desires to be a full code. The patient is a lifelong nonsmoker. Does not use any alcohol marijuana or illicit drugs. Smoking status: Never smoker Alcohol intake: never Substance use: never Gender identity (if verbalized by the patient): Female Spiritual care concerns: No Exam Const: General: no acute distress and alert Orientation/consciousness: patient oriented x3 Neck: Neck: normal visual inspection Resp: Effort & Inspection: normal respiratory effort Auscultation: clear to auscultation bilaterally Cardio: Rate: regular rate Rhythm: regular rhythm GI: GI Palp: Yes Soft to palpation and No Tenderness to palpation present (GI) Skin: General skin exam: normal color Wounds: no wounds Neuro: General: patient oriented x3, moves all extremities and CN's II-XI intact bilaterally Speech: normal speech Extrem: Other: 2+ DP bilaterally Severe pain with hip flexion bilaterally Course Vital Signs Vital signs: Vital Signs Temperature 36.3 C L 04/13/21 10:31 Pulse Rate 74 04/13/21 10:31 Respiratory Rate 16 04/13/21 10:31 Blood Pressure 141/66 H 04/13/21 10:31 Pulse Oximetry 99 04/13/21 10:31 Temperature 36.8 C 04/16/21 06:00 Pulse Rate 76 04/16/21 08:07 Respiratory Rate 16 03/29
[2021-04-13 11:16] VITALS: BP 138/56; PULSE 79; RESP 16; O2SAT 100
--- NOTE | 2021-04-13 11:26 | PC.NURSE ---
ED Wellness Trainer in room to speak with pt
--- NOTE | 2021-04-13 14:28 | PCPTNOTE ---
Hold PT eval awaiting Ortho consult
--- NOTE | 2021-04-13 14:32 | PCOTNOTE ---
Hold OT eval awaiting Ortho consult
[2021-04-13 15:08] VITALS: BP 145/52; PULSE 72; RESP 17; O2SAT 99
[2021-04-13 15:25] VITALS: BP 142/60; PULSE 72; RESP 16; TEMP 36.9; O2SAT 94
[2021-04-13 15:33] VITALS: BMI 26.8
--- NOTE | 2021-04-13 15:46 | ADMGEN ---
This patient, Ann Marie Acuna, was admitted to [address] [facility] Surg Room 314-02. Patient/family oriented to hospital policies and general routines including ID bracelet, bed and alarms, visiting hours, pain management, procedures, bathroom and other care routines, personal items, smoking policy, room service/diet, and visiting hours. Information on how to activate the Rapid Response Team has been discussed. Patient/Family are encouraged to report perceived risks to care and to ask questions if they do not understand what they are told or what they should do.
--- NOTE | 2021-04-13 16:18 | PM.IMHP ---
H&P: HPI History of Present Illness Date/Time: 04/13/21 16:18 this is a 80-year-old female patient who is admitted here on 03/22/2021for a pelvic fracture after a fall she had sustained at that time and she was discharged to home after three days. The patient lives with her son who is rarely at home and she stated that she was dealing with the pain and was doing okay until about 3 days ago it became worse. The patient was seen in the emergency room 04/11/21 and was having difficulty walking. She was having some pelvic pain and muscular pain to her buttocks and lower extremities. The patient's legs were edematous. According to the ER notes a venous Doppler was performed without evidence of DVT at that time. Patient was given low-dose tramadol and was able to ambulate in the ED on that day therefore she was discharged back to home. Today the patient returns to the emergency room for complaints of leg and buttocks pain. The edema is less. The patient stated that she took her pain medication as prescribed and was not getting any pain relief. Patient once again is having difficulty walking due to the discomfort. The patient feels that she will not be able to take care of herself at home. CT which was read has bilateral sacral insufficiency fractures. Mid to moderate lumbar spondylosis. Nonobstructing left nephrolithiasis. CT of the pelvis was read as the folowing : 1.Small amount of nonbridging callus formation at the mildly displaced, mildly comminuted subacute fractures of the left superior and inferior pubic rami. 2. Minimally displaced sagittally oriented fracture of the left and right sacral ala and transverse fracture across the S2 vertebral body. 3. Minimal cholelithiasis within the dilated gallbladder which is without wall thickening or pericholecystic inflammatory change to suggest acute cholecystitis. 4. Fibroid uterus. The patioent was given norco in the emergency room without relief. The patient stated that she did no feel that she would be able to stAY [facility] and take care of herself. She is wanting to go to a rehab facility. She is being admitted to observation status on the date of service of 04/13/2021. Chief Complaint: back pain Review of Systems Review of Systems: All systems reviewed & are unremarkable except as noted in HPI and below Constitutional: Constitutional: Reports as per HPI and Reports no additional constitutional complaints Eyes: Eyes: Reports as per HPI and Reports no additional eye complaints ENT: Reports system reviewed and no additional complaints, except as documented and Reports Normal hearing present Cardiovascular: Cardiovascular: Reports no additional cardiovascular complaints Respiratory: Respiratory: Reports no additional respiratory complaints and Reports no additional respiratory complaints Gastrointestinal: Gastrointestinal: Reports as per HPI and Reports no additional gastrointestinal complaints Musculoskeletal: Musculoskeletal: Reports no additional musculoskeletal complaints Integumentary/Breasts: Skin/Breast: Reports system reviewed and no additional complaints, except as docu and Reports as per HPI Neurologic: Reports system reviewed and no additional complaints, except as documented, Reports as per HPI and Reports Normal hearing present Psychiatric: Psychiatric: Reports no additional psychiatric complaints and Reports as per HPI Endocrine: Endocrine: Reports no additional endocrine complaints Hematologic/Lymphatic: Hematologic/Lymphatic: Reports no additional hematologic/lymphatic complaints Allergic/Immunologic: Allergic/Immunologic: Reports no additional allergic/immunologic complaints [facility] Past Medical History Medical History (Updated 04/13/21 @ 16:41 by Fidelina Peacock NP) Anemia Hypertension Left wrist fracture Osteoporosis Vitamin D deficiency disease Surgical History Surgical History H/O partial thyroidectomy
[2021-04-13] MEDS: KETOROLAC 15 MG/ML VIAL (*BKC) IV PUSH (16:25)
[2021-04-13 17:32] LABS: Immature Reticulocyte Fraction 23.4 % (3.0-15.9); Reticulocyte Hemoglobin Conten 35.9 pg (28.2-35.7); Reticulocyte Percent 2.69 % (0.7-4.3)
[2021-04-13 18:12] LABS: Iron 32 ug/dL (37-170)
[2021-04-13 18:20] LABS: Transferrin 155 mg/dL (206-381)
[2021-04-13 18:21] LABS: Percent Iron Saturation 14 % (20-50)
[2021-04-13 19:19] LABS: Folic Acid 19.6 ng/mL (2.76->20)
[2021-04-13 21:52] VITALS: BP 132/50; PULSE 66; RESP 18; TEMP 36.9; O2SAT 95
--- NOTE | 2021-04-14 | ECHO_ITS ---
Patient Info Name: Ann Marie Acuna Age: 80 years : 1940 Gender: Female Ht: 60 in Wt: 137 lbs BSA: 1.64 m2 HR: 60 bpm BP: 147 / 49 mmHg Technical Quality: Good Exam Date: 04/14/2021 7:50 AM Exam Location: [facility] Patient Status: Inpatient Admit Date: 04/13/2021 Staff Ordering Physician: Fidelina Peacock NP Industrial Health Engineer: Vahid Tilley RDCS, RT Attending Provider: Alexey Sandoval MD Referring Physician: Madonna GAONA; Exam Type: CA echo doppler color flow Study Info Indications R60.9 - Edema, unspecified Complete two-dimensional, color flow and Doppler transthoracic echocardiogram is performed. Strain analysis performed. Summary 1. Complete two-dimensional, color flow and Doppler transthoracic echocardiogram is performed. 2. Left ventricular chamber dimension is normal. 3. Left ventricular systolic function is normal, estimated at 65-70%. 4. The left ventricular diastolic function is grade I diastolic dysfunction. 5. E/e' 9 is minimally elevated. 6. Global longitudinal strain is normal at -17.3%. 7. The mitral valve has moderately calcified annulus. 8. There is mild to moderate tricuspid valve regurgitation. 9. No pulmonary hypertension, estimated pulmonary arterial systolic pressure is 37 mmHg. 10. There is trace pulmonic regurgitation. Left Ventricle E/e' 9 is minimally elevated. Global longitudinal strain is normal at -17.3%. Left ventricular chamber dimension is normal. Left ventricular systolic function is normal, estimated at 65-70%. The left ventricular diastolic function is grade I diastolic dysfunction. Right Ventricle Right ventricular systolic function is normal with normal TAPSE 2.6 cm. Right ventricular chamber dimension is normal. Left Atria Left atrial chamber dimension is normal. Right Atria Right atrial chamber dimension is normal. Aortic Valve The aortic valve is trileaflet. There is no aortic valve stenosis. There is no aortic valve regurgitation. Pulmonic Valve There is trace pulmonic regurgitation. Mitral Valve The mitral valve has moderately calcified annulus. There is no mitral valve stenosis. There is no mitral valve regurgitation. Tricuspid Valve There is mild to moderate tricuspid valve regurgitation. No pulmonary hypertension, estimated pulmonary arterial systolic pressure is 37 mmHg. Pericardium/Pleural There is no pericardial effusion. Inferior Vena Cava Normal inferior vena cava with >50% collapse upon inspiration consistent with normal right atrial pressure, 5 mmHg. Aorta The aortic root size at the sinus of Valsalva is normal. Left Ventricular Outflow Tract Name Value Normal LVOT 2D LVOT Diameter 1.9 cm LVOT Doppler LVOT Peak Velocity 87 cm/s LVOT Peak Gradient 3 mmHg LVOT Mean Gradient 2 mmHg LVOT VTI 20 cm LVOT VTI/AV VTI Ratio 0.9 LVOT Stroke Volume 61 ml LVOT CO 3.7 l/min L
[2021-04-14 05:27] VITALS: BP 147/49; PULSE 62; RESP 18; TEMP 36.6; O2SAT 95
[2021-04-14] MEDS: HYDROcodone/acetaminophen (*CRX) 5-325 MG TABLET 1 TAB PO ×2 (06:11→10:24)
[2021-04-14] MEDS: CYCLOBENZAPRINE HCL 5 MG TABLET PO ×2 (06:11→23:37)
[2021-04-14 06:49] LABS: Basophils Percent Auto 0.8 % (0.2-1.2); Eosinophils Absolute Auto 0.1 K/mm3 (0-0.3); Eosinophils Percent Auto 2.7 % (0-4.4); Hemoglobin 11.1 g/dL (12.0-15.0); Immature Granulocyte Absolute 0.04 K/mm3 (0.00-0.031); Immature Granulocyte Percent A 0.8 % (0-0.5); Lymphocytes Absolute Auto 1.62 K/mm3 (0.9-3.2); Lymphocytes Percent Auto 31.3 % (18.3-44.2); Mean Corpuscular HGB Conc 31.7 g/dl (32-36); Mean Corpuscular Hemoglobin 30.6 pg (26-34); Mean Corpuscular Volume 96.4 fl (80-100); Mean Platelet Volume 11.5 fl (7.4-10.4); Monocytes Absolute Auto 0.3 K/mm3 (0.1-0.6); Monocytes Percent Auto 6.6 % (2.6-8.5); Neutrophils Percent Auto 57.8 % (45.5-73.1); Platelet Count Result 292 k/mm3 (150-375); Red Blood Count 3.63 M/mm3 (4.2-5.4); Red Cell Distribution Width 15.4 % (11.5-14.5); White Blood Count 5.2 K/mm3 (4.5-10.0)
[2021-04-14 07:03] LABS: Anion Gap 4 mmol/L (8-16); Blood Urea Nitrogen 13 mg/dL (7-17); CRP 1.9 mg/dL (<1.0); Calcium 8.2 mg/dL (8.4-10.2); Carbon Dioxide 27 mmol/L (22-30); Chloride 107 mmol/L (98-107); Estimated CRCL calculation 54 ml/min; Estimated Glomerular Filt Rate > 60; Glucose 85 mg/dL (65-105); Potassium 3.3 mmol/L (3.4-5.0); Sodium 138 mmol/L (137-145)
[2021-04-14] MEDS: CHOLECALCIFEROL 1,000 UNITS TABLET 2000 UNITS BY MOUTH (10:14)
[2021-04-14] MEDS: OMEGA 3 POLYUNSAT FATTY ACIDS 1 GM CAP PO (10:14)
[2021-04-14] MEDS: ENOXAPARIN 40 MG/0.4 ML SYRINGE SUB-Q (10:15)
[2021-04-14] MEDS: lisinopriL 20 MG TABLET PO (10:15)
[2021-04-14] MEDS: POTASSIUM CHLORIDE 20 MEQ TABLET 40 MEQ PO (10:24)
--- NOTE | 2021-04-14 10:47 | PCOTNOTE ---
Per RN, hold OT evaluation this AM due to increased patient pain and discomfort. Will attempt OT evaluation in afternoon.
--- NOTE | 2021-04-14 11:46 | PCPTNOTE ---
Pt on hold due to increased pain. Will try again later today.
[2021-04-14 14:00] VITALS: BP 138/59; PULSE 74; RESP 18; TEMP 35.9; O2SAT 96
--- NOTE | 2021-04-14 14:23 | PM.IMPN ---
Progress Note: A&P Assessment and Plan (1) Sacral fracture: Code(s): S32.10XA - Unspecified fracture of sacrum, initial encounter for closed fracture Status: Acute Assessment and Plan: Patient was recently admitted due to left superior and inferior pubic rami fractures after a fall. She was evaluated by orthopedic surgery and non operative conservative management was decided. She discharged home with home health 03/25/21. Unfortunately has not been able to ambulate well and her son who lives with her is just not home at all times. She requests SNF placement due to pain and immobility. CT demonstrates the subacute fractures of left superior and inferior pubic rami as well as minimally displaced left and right sacral ala and transverse fracture across the S2 vertebral body. Case management working on SNF. Continue supportive care with pain control and muscle relaxers as needed. (2) Hypertension: Qualifiers: Hypertension type: essential hypertension Qualified Code(s): I10 - Essential (primary) hypertension Code(s): I10 - Essential (primary) hypertension Status: Chronic Assessment and Plan: Blood pressures reviewed, stable. Continue with lisinopril. Monitor BP and adjust treatment as needed. (3) Multiple pelvic fractures: Qualifiers: Encounter type: initial encounter Fracture alignment: with stable disruption of pelvic ring Fracture type: closed Qualified Code(s): S32.810A - Multiple fractures of pelvis with stable disruption of pelvic ring, initial encounter for closed fracture Code(s): S32.82XA - Multiple fractures of pelvis without disruption of pelvic ring, initial encounter for closed fracture Status: Acute Assessment and Plan: See above. (4) Anemia: Code(s): D64.9 - Anemia, unspecified Status: Chronic Assessment and Plan: Mild, asymptomatic. Iron is low. Start oral iron supplement. No evidence of acute bleeding. Monitor H&H. Subjective Date/time seen: 04/14/21 1300 Interval history: Ms. Acuna is a pleasant 80yo F admitted due to pelvic fractures causing her pain. She was recently discharged home with home health and she describes she is having too much pain to care for herself at home currently. She describes pain to RICHELLE buttocks and down both legs. She denies chest pain, shortness of breath, palpitations, nausea or vomiting. Review of Systems Review of Systems: All systems reviewed & are unremarkable except as noted in HPI and below Exam Narrative: Exam Narrative: General: Female resting comfortably in bed in no acute distress. HEENT: Normocephalic, EOMI, oral mucosa moist. Cardiovascular: Rate and rhythm are regular. Respiratory: Lungs clear to auscultation bilaterally. Respirations even and non-labored. Tolerating room air. Abdomen: Soft, non-tender, non-distended, bowel sounds present. Extremities: Peripheral pulses intact. No edema or pain to palpation. RICHELLE feet neurovascularly intact. Small 2cm fluid-filled blister to dorsum of right foot. Pain with passive ROM RICHELLE hip. Neuro: Awake and alert; answering questions appropriately. No focal neurological deficits. Speech is clear. Objective Data Vital Signs Vital Signs: Last Vital Signs Temp 96.7 F L 04/14/21 14:00 Pulse 74 04/14/21 14:00 Resp 18 04/14/21 14:00 BP 138/59 L 04/14/21 14:00 Pulse Ox 96 04/14/21 14:00 Intake/Output Intake/Output: Intake & Output 04/11/21 04/12/21 04/13/21 04/14/21 23:59 23:59 23:59 23:59 Intake Total 250 730 Output Total 450 300 Balance -200 430 Meds/Results Medications: Active Medications Generic Name Dose Route Start Last Admin Trade Name Freq PRN Reason Stop Dose Admin Hydrocodone Bitart/Acetaminophen 1 tab
--- NOTE | 2021-04-14 14:40 | PHAR ---
HOME MED VERIFIED BIOFREEZE 4% APPLY TID PRN PAIN
[2021-04-14 22:00] VITALS: BP 131/57; PULSE 79; RESP 18; TEMP 36.4; O2SAT 97
[2021-04-15 06:00] VITALS: BP 142/60; PULSE 65; RESP 18; TEMP 36.6; O2SAT 96
[2021-04-15] MEDS: ALENDRONATE SODIUM 70 MG TABLET PO (06:13)
[2021-04-15 06:50] LABS: Hematocrit 36.6 % (37.0-47.0); Hemoglobin 11.4 g/dL (12.0-15.0)
[2021-04-15] MEDS: HYDROcodone/acetaminophen (*CRX) 5-325 MG TABLET 1 TAB PO ×2 (08:09→23:22)
[2021-04-15] MEDS: CHOLECALCIFEROL 1,000 UNITS TABLET 2000 UNITS BY MOUTH (08:10)
[2021-04-15] MEDS: ENOXAPARIN 40 MG/0.4 ML SYRINGE SUB-Q (08:10)
[2021-04-15] MEDS: lisinopriL 20 MG TABLET PO (08:10)
[2021-04-15] MEDS: FERROUS SULFATE 324 MG TABLET PO (08:10)
[2021-04-15] MEDS: OMEGA 3 POLYUNSAT FATTY ACIDS 1 GM CAP PO (08:10)
[2021-04-15] MEDS: POTASSIUM CHLORIDE 20 MEQ TABLET 40 MEQ PO (09:59)
--- NOTE | 2021-04-15 13:35 | PM.IMPN ---
Progress Note: A&P Assessment and Plan (1) Sacral fracture: Code(s): S32.10XA - Unspecified fracture of sacrum, initial encounter for closed fracture Status: Acute Assessment and Plan: Patient was recently admitted due to left superior and inferior pubic rami fractures after a fall. She was evaluated by orthopedic surgery and non operative conservative management was decided. She discharged home with home health 03/25/21. Unfortunately has not been able to ambulate well and her son who lives with her is just not home at all times. She requests SNF placement due to pain and immobility. CT demonstrates the subacute fractures of left superior and inferior pubic rami as well as minimally displaced left and right sacral ala and transverse fracture across the S2 vertebral body. The sacral fractures were not appreciated on XR during her last visit. May ask for Dr Rabago/Vandana's opinion Saturday. Case management working on SNF - auth will be submitted Saturday. Continue supportive care with pain control and muscle relaxers as needed. (2) Hypertension: Qualifiers: Hypertension type: essential hypertension Qualified Code(s): I10 - Essential (primary) hypertension Code(s): I10 - Essential (primary) hypertension Status: Chronic Assessment and Plan: Blood pressures reviewed, stable. Continue with lisinopril. Monitor BP and adjust treatment as needed. (3) Multiple pelvic fractures: Qualifiers: Encounter type: initial encounter Fracture alignment: with stable disruption of pelvic ring Fracture type: closed Qualified Code(s): S32.810A - Multiple fractures of pelvis with stable disruption of pelvic ring, initial encounter for closed fracture Code(s): S32.82XA - Multiple fractures of pelvis without disruption of pelvic ring, initial encounter for closed fracture Status: Acute Assessment and Plan: See above. (4) Anemia: Code(s): D64.9 - Anemia, unspecified Status: Chronic Assessment and Plan: Mild, asymptomatic. H&H remains low but stable. Iron was low. Start oral iron supplement. No evidence of acute bleeding. Monitor H&H. Subjective Date/time seen: 04/15/21 1245 Interval history: Ms. Acuna is a pleasant 80yo F admitted due to pelvic fractures causing her pain. She was recently discharged home with home health and she describes she is having too much pain to care for herself at home currently. She describes pain to RICHELLE buttocks and down both legs. At the time of my encounter she is standing with therapy, had significant pain while trying to sit which she rates 10/10. She denies chest pain, shortness of breath, palpitations, nausea or vomiting. Review of Systems Review of Systems: All systems reviewed & are unremarkable except as noted in HPI and below Exam Narrative: Exam Narrative: General: Female standing with therapy with her walker (about to go for a walk). HEENT: Normocephalic, EOMI, oral mucosa moist. Cardiovascular: Rate and rhythm are regular. Respiratory: Lungs clear to auscultation bilaterally. Respirations even and non-labored. Tolerating room air. Abdomen: Soft, non-tender, non-distended, bowel sounds present. Extremities: Peripheral pulses intact. No edema or pain to palpation. RICHELLE feet neurovascularly intact. Small 2cm fluid-filled blister to dorsum of right foot. Neuro: Awake and alert; answering questions appropriately. No focal neurological deficits. Speech is clear. Objective Data Vital Signs Vital Signs: Vital Signs - 24 hr 04/14/21 14:00 04/14/21 22:00 04/15/21 06:00 Temperature 96.7 F L 97.6 F 97.9 F Pulse Rate 74 79 65 Respiratory Rate 18 18 18 Blood Pressure 138/59 L 131/57 L 142/60 H Pulse Oximetry 96 97 96 Intake/Output Intake/Outpu
[2021-04-15 14:00] VITALS: BP 134/56; PULSE 80; RESP 18; TEMP 36.6; O2SAT 99
[2021-04-15 21:53] VITALS: O2SAT 97
[2021-04-15 22:00] VITALS: BP 123/53; PULSE 78; RESP 18; TEMP 37; O2SAT 97
[2021-04-16 06:00] VITALS: BP 127/51; PULSE 68; RESP 18; TEMP 36.8; O2SAT 18
[2021-04-16 06:00] LABS: Glucose Point of Care 93 mg/dl (65-105)
[2021-04-16 06:26] LABS: Anion Gap 4 mmol/L (8-16); Blood Urea Nitrogen 14 mg/dL (7-17); Calcium 8.5 mg/dL (8.4-10.2); Carbon Dioxide 29 mmol/L (22-30); Chloride 105 mmol/L (98-107); Estimated CRCL calculation 47 ml/min; Estimated Glomerular Filt Rate > 60; Glucose 94 mg/dL (65-105); Magnesium 1.7 mg/dL (1.6-2.3); Potassium 4.2 mmol/L (3.4-5.0); Sodium 138 mmol/L (137-145)
[2021-04-16 08:07] VITALS: PULSE 76; RESP 16; O2SAT 98
[2021-04-16] MEDS: HYDROcodone/acetaminophen (*CRX) 5-325 MG TABLET 1 TAB PO ×2 (08:24→16:30)
[2021-04-16] MEDS: MAGNESIUM SULF 2 GM/WATER 50ML 2 GM/50 ML BAG IVPB (08:25)
[2021-04-16] MEDS: OMEGA 3 POLYUNSAT FATTY ACIDS 1 GM CAP PO (08:25)
[2021-04-16] MEDS: CHOLECALCIFEROL 1,000 UNITS TABLET 2000 UNITS BY MOUTH (08:25)
[2021-04-16] MEDS: FERROUS SULFATE 324 MG TABLET PO (08:25)
[2021-04-16] MEDS: lisinopriL 20 MG TABLET PO (08:25)
[2021-04-16] MEDS: ENOXAPARIN 40 MG/0.4 ML SYRINGE SUB-Q (08:26)
[2021-04-16 10:16] LABS: IFOB Positive Control Positive; Immunochemical Fecal Occult Bl Negative (N)
[2021-04-16 14:00] VITALS: BP 126/51; PULSE 77; RESP 20; TEMP 36.8; O2SAT 94
--- NOTE | 2021-04-16 16:08 | PM.IMPN ---
Progress Note: A&P Assessment and Plan (1) Sacral fracture: Code(s): S32.10XA - Unspecified fracture of sacrum, initial encounter for closed fracture Status: Acute Assessment and Plan: Patient was recently admitted due to left superior and inferior pubic rami fractures after a fall. She was evaluated by orthopedic surgery and non operative conservative management was decided. She discharged home with home health 03/25/21. Unfortunately has not been able to ambulate well and her son who lives with her is not home at all times. She requests SNF placement due to pain and immobility. CT demonstrates the subacute fractures of left superior and inferior pubic rami as well as minimally displaced left and right sacral ala and transverse fracture across the S2 vertebral body. The sacral fractures were not appreciated on XR during her last visit. May ask for Dr Rabago/Vandana's opinion Saturday to make sure recommendations remain the same. Case management working on SNF - auth will be submitted tomorrow. Continue supportive care with pain control and muscle relaxers as needed. (2) Hypertension: Qualifiers: Hypertension type: essential hypertension Qualified Code(s): I10 - Essential (primary) hypertension Code(s): I10 - Essential (primary) hypertension Status: Chronic Assessment and Plan: Blood pressures reviewed, stable. Continue with lisinopril. Monitor BP and adjust treatment as needed. (3) Multiple pelvic fractures: Code(s): S32.82XA - Multiple fractures of pelvis without disruption of pelvic ring, initial encounter for closed fracture Status: Acute Assessment and Plan: See above. (4) Anemia: Code(s): D64.9 - Anemia, unspecified Status: Chronic Assessment and Plan: Mild, asymptomatic. H&H remains low but stable. Iron was low. Started oral iron supplement. No evidence of acute bleeding. Monitor H&H. Subjective Date/time seen: 04/16/21 1315 Interval history: Ms. Acuna is a pleasant 80yo F admitted due to pelvic fractures causing her pain. She was recently discharged home with home health and she describes she is having too much pain to care for herself at home currently. She describes pain to RICHELLE buttocks and down both legs, she rates a 9/10 at present. She denies chest pain, shortness of breath, palpitations, nausea or vomiting. Review of Systems Review of Systems: All systems reviewed & are unremarkable except as noted in HPI and below Exam Narrative: Exam Narrative: General: Female resting in bed in no acute distress. HEENT: Normocephalic, EOMI, oral mucosa moist. Cardiovascular: Rate and rhythm are regular. Respiratory: Lungs clear to auscultation bilaterally. Respirations even and non-labored. Tolerating room air. Abdomen: Soft, non-tender, non-distended, bowel sounds present. Extremities: Peripheral pulses intact. No edema or pain to palpation. RICHELLE feet neurovascularly intact. Small 2cm fluid-filled blister to dorsum of right foot. Neuro: Awake and alert; answering questions appropriately. No focal neurological deficits. Speech is clear. Objective Data Vital Signs Vital Signs: Last Vital Signs Temp 98.2 F 04/16/21 06:00 Pulse 76 04/16/21 08:07 Resp 16 04/16/21 08:07 BP 127/51 L 04/16/21 06:00 Pulse Ox 98 04/16/21 08:07 Intake/Output Intake/Output: Intake & Output 04/13/21 04/14/21 04/15/21 04/16/21 23:59 23:59 23:59 23:59 Intake Total 250 1130 1230 490 Output Total 149 045 7939 350 Balance -200 530 -620 140 Meds/Results Medications: Active Medications Generic Name Dose Route Start Last Admin Trade Name Freq PRN Reason Stop Dose Admin Hydrocodone Bitart/Acetaminophen 1 tab 04/13/21 13:25 04/16/21 08:24 Hydrocodone/Acetaminoph
[2021-04-16 20:00] VITALS: PULSE 77; RESP 20; O2SAT 94
[2021-04-16 21:54] VITALS: BP 127/58; PULSE 76; RESP 20; TEMP 36.8; O2SAT 92
[2021-04-17 06:00] VITALS: BP 130/70; PULSE 77; RESP 20; TEMP 36.7; O2SAT 97
[2021-04-17] MEDS: HYDROcodone/acetaminophen (*CRX) 5-325 MG TABLET 1 TAB PO (08:10)
[2021-04-17] MEDS: MAGNESIUM OXIDE 400 MG TABLET PO (08:11)
[2021-04-17] MEDS: CHOLECALCIFEROL 1,000 UNITS TABLET 2000 UNITS BY MOUTH (08:11)
[2021-04-17] MEDS: FERROUS SULFATE 324 MG TABLET PO (08:11)
[2021-04-17] MEDS: lisinopriL 20 MG TABLET PO (08:11)
[2021-04-17] MEDS: ENOXAPARIN 40 MG/0.4 ML SYRINGE SUB-Q (08:11)
[2021-04-17] MEDS: OMEGA 3 POLYUNSAT FATTY ACIDS 1 GM CAP PO (08:11)
--- NOTE | 2021-04-17 12:19 | PM.IMPN ---
Progress Note: A&P Assessment and Plan (1) Sacral fracture: Code(s): S32.10XA - Unspecified fracture of sacrum, initial encounter for closed fracture Status: Acute Assessment and Plan: Patient was recently admitted due to left superior and inferior pubic rami fractures after a fall. She was evaluated by orthopedic surgery and non operative conservative management was decided. She discharged home with home health 03/25/21. Unfortunately has not been able to ambulate well and her son who lives with her is not home at all times. She requests SNF placement due to pain and immobility. CT demonstrates the subacute fractures of left superior and inferior pubic rami as well as minimally displaced left and right sacral ala and transverse fracture across the S2 vertebral body. The sacral fractures were not appreciated on XR during her last visit. Spoke with ortho to discuss case - recommended continue WBAT and pain control. MRI lumbar spine ordered. Case management working on SNF - awaiting insurance authorization. Continue supportive care with pain control and muscle relaxers as needed. (2) Hypertension: Qualifiers: Hypertension type: essential hypertension Qualified Code(s): I10 - Essential (primary) hypertension Code(s): I10 - Essential (primary) hypertension Status: Chronic Assessment and Plan: Blood pressures reviewed, stable. Continue with lisinopril. Monitor BP and adjust treatment as needed. (3) Multiple pelvic fractures: Code(s): S32.82XA - Multiple fractures of pelvis without disruption of pelvic ring, initial encounter for closed fracture Status: Acute Assessment and Plan: See above. (4) Anemia: Code(s): D64.9 - Anemia, unspecified Status: Chronic Assessment and Plan: Mild, asymptomatic. H&H remains low but stable. Iron was low. Started oral iron supplement. No evidence of acute bleeding. Monitor H&H. Subjective Date/time seen: 04/17/21 12:00 Interval history: Ms. Acuna is a pleasant 80yo F admitted due to pelvic fractures causing her pain. She was recently discharged home with home health and she describes she is having too much pain to care for herself at home currently. She describes pain to RICHELLE buttocks and down both legs which is a little improved today. No saddle anesthesia or other numbness/tingling. She denies chest pain, shortness of breath, palpitations, nausea or vomiting. Review of Systems Review of Systems: All systems reviewed & are unremarkable except as noted in HPI and below Exam Narrative: Exam Narrative: General: Female resting comfortably in bed in no acute distress. HEENT: Normocephalic, EOMI, oral mucosa moist. Cardiovascular: Rate and rhythm are regular. Respiratory: Lungs clear to auscultation bilaterally. Respirations even and non-labored. Tolerating room air. Abdomen: Soft, non-tender, non-distended, bowel sounds present. Extremities: Peripheral pulses intact. No edema or pain to palpation. RICHELLE feet neurovascularly intact. Small 2cm fluid-filled blister to dorsum of right foot. Neuro: Awake and alert; answering questions appropriately. No focal neurological deficits. Speech is clear. Objective Data Vital Signs Vital Signs: Last Vital Signs Temp 98.1 F 04/17/21 06:00 Pulse 77 04/17/21 06:00 Resp 20 04/17/21 06:00 BP 130/70 04/17/21 06:00 Pulse Ox 97 04/17/21 06:00 Intake/Output Intake/Output: Intake & Output 04/14/21 04/15/21 04/16/21 04/17/21 23:59 23:59 23:59 23:59 Intake Total 1130 1230 730 440 Output Total 600 1850 1075 450 Balance 530 -620 -345 -10 Meds/Results Medications: Active Medications Generic Name Dose Route Start Last Admin Trade Name Freq PRN Reason Stop Dose Admin Acetaminophen 6
[2021-04-17 14:00] VITALS: BP 138/60; PULSE 77; RESP 20; TEMP 37; O2SAT 96
[2021-04-17] MEDS: HYDROcodone/acetaminophen (*CRX) 7.5-325 MG TABLET 1 TAB PO (15:38)
[2021-04-17 22:00] VITALS: BP 103/49; PULSE 70; RESP 18; TEMP 36.4; O2SAT 95
[2021-04-18 06:00] VITALS: BP 135/67; PULSE 70; RESP 18; TEMP 35.9; O2SAT 97
[2021-04-18 06:12] LABS: Hematocrit 35.9 % (37.0-47.0); Hemoglobin 11.7 g/dL (12.0-15.0)
[2021-04-18 06:25] LABS: Anion Gap 4 mmol/L (8-16); Blood Urea Nitrogen 15 mg/dL (7-17); Calcium 8.5 mg/dL (8.4-10.2); Carbon Dioxide 28 mmol/L (22-30); Chloride 104 mmol/L (98-107); Estimated CRCL calculation 54 ml/min; Estimated Glomerular Filt Rate > 60; Glucose 93 mg/dL (65-105); Magnesium 1.9 mg/dL (1.6-2.3); Potassium 4.6 mmol/L (3.4-5.0); Sodium 136 mmol/L (137-145)
[2021-04-18] MEDS: HYDROcodone/acetaminophen (*CRX) 7.5-325 MG TABLET 1 TAB PO ×2 (06:45→15:54)
[2021-04-18 08:00] VITALS: PULSE 70; RESP 18; O2SAT 97
[2021-04-18] MEDS: FERROUS SULFATE 324 MG TABLET PO (08:51)
[2021-04-18] MEDS: CHOLECALCIFEROL 1,000 UNITS TABLET 2000 UNITS BY MOUTH (08:51)
[2021-04-18] MEDS: ENOXAPARIN 40 MG/0.4 ML SYRINGE SUB-Q (08:51)
[2021-04-18] MEDS: OMEGA 3 POLYUNSAT FATTY ACIDS 1 GM CAP PO (08:52)
[2021-04-18] MEDS: lisinopriL 20 MG TABLET PO (08:52)
[2021-04-18] MEDS: MAGNESIUM OXIDE 400 MG TABLET PO (08:52)
--- NOTE | 2021-04-18 11:30 | PM.DS ---
DS: Admitting Diagnosis Admitting Diagnosis Admitting Diagnosis: sacral fracture DS: Discharge Diagnosis Discharge Diagnosis (1) Sacral fracture: Code(s): S32.10XA - Unspecified fracture of sacrum, initial encounter for closed fracture Status: Acute Assessment and Plan: -Patient was recently admitted due to left superior and inferior pubic rami fractures after a fall. She was evaluated by orthopedic surgery and non operative conservative management was decided. She discharged home with home health 03/25/21. She did well for awhile but unfortunately has not been able to ambulate well lately and her son who lives with her is not home at all times. -CT demonstrates the subacute fractures of left superior and inferior pubic rami as well as minimally displaced left and right sacral ala and transverse fracture across the S2 vertebral body. The sacral fractures were not appreciated on XR during her last visit. -Previous provider spoke with ortho to discuss case - recommended continue WBAT and pain control. -MRI lumbar spine showed: 1. Subacute sacral insufficiency fractures. 2. Moderate lumbar spondylosis. 3. Lumbar dextroscoliosis. 4. Gallbladder distention, which may be secondary to fasting. (no symptoms of abdominal pain) -Pt has been able to walk a bit while here which is an improvement but still has issues sitting in a chair due to pain -She has some shooting pains to her leg but no loss of bowel or bladder incontinence. No cord compression on MRI. Pt given a medrol dosepak at d/c -Pt d/c to SNF. She is interested in the COVID vaccine due to her placement and I have contacted [facility] who is going to get in touch with her. (2) Hypertension: Qualifiers: Hypertension type: essential hypertension Qualified Code(s): I10 - Essential (primary) hypertension Code(s): I10 - Essential (primary) hypertension Status: Chronic Assessment and Plan: Last bp 130/59 - Continue with lisinopril (3) Multiple pelvic fractures: Code(s): S32.82XA - Multiple fractures of pelvis without disruption of pelvic ring, initial encounter for closed fracture Status: Acute Assessment and Plan: Continue with rehab -pain controlled with norco. Will stop her home oxycodone. (4) Anemia: Code(s): D64.9 - Anemia, unspecified Status: Chronic Assessment and Plan: -Mild, asymptomatic. H&H remains low but stable. -iron started -colonoscopy up to date - No evidence of acute bleeding. DS: Summary Hospital Course Hospital Course: Pt is a 80 y/o female who had a hx of pelvic fractures from 03/21/21 living at home who presented to the ED for leg and buttock pain. She is now unable to get out of bed or walk. Vitals in the ER were stable as was her CBC and BMP. Ct of the abd/pelv: 1. Small amount of nonbridging callus formation at the mildly displaced, mildly comminuted subacute fractures of the left superior and inferior pubic rami. 2. Minimally displaced sagittally oriented fracture of the left and right sacral ala and transverse fracture across the S2 vertebral body. 3. Minimal cholelithiasis within the dilated gallbladder which is without wall thickening or pericholecystic inflammatory change to suggest acute cholecystitis. 4. Fibroid uterus. Pt was admitted to the hospitalist service for pain control and therapy. She had some improvement but required SNF at discharge. Please see above for further details. No signs of cauda equina and MRI is detailed above. Day of discharge pt had improvement and was educated about the worrisome signs and symptoms to come back to the ER for and was discharged in stable condition. Time Spent with Patient Time attestation: Total time spent providing and/or coordinating discharge services:38 min Exam Narrative: Exam Narrative: General: WDWN pt resting in bed in NAD HEENT: Normocephalic, EOMI, oral mucosa moist. Cardiovascular: RRR Respiratory: C
--- NOTE | 2021-04-18 13:02 | PC.NURSE ---
Per Dr. ron balloon deflated and elkins removed. Will continue to monitor void amounts.
[2021-04-18 14:00] VITALS: BP 130/59; PULSE 69; RESP 16; TEMP 37.1; O2SAT 96
[2021-04-20 06:19] LABS: Creatinine, Random Urine 56 mg/dL (20-275); Total Protein/Creatinine Ratio 179 mg/g creat (21-161)
--- NOTE | 2021-04-25 10:13 | PC.NURSE ---
UPEP- no peaks detected.
== END 2021-04-18 17:00 ==
LOC: ANHED 11:19 → ANH3MEDSUR 13:51
PROVIDERS: Nurse Practitioner; Physician Assistant; Admitting Provider Internal Medicine; Emergency Provider Emergency Medicine; PCP Emergency Medicine; Visit Provider Internal Medicine
DX: M84.48XA Pathological fracture, other site, initial encounter for fracture (principal); S32.592D Other specified fracture of left pubis, subsequent encounter for fracture with routine healing; I10 Essential (primary) hypertension; D64.9 Anemia, unspecified; E55.9 Vitamin D deficiency, unspecified; M79.604 Pain in right leg; M47.816 Spondylosis without myelopathy or radiculopathy, lumbar region; M81.0 Age-related osteoporosis without current pathological fracture; N20.0 Calculus of kidney; Z79.899 Other long term (current) drug therapy
CPT/HCPCS: 36415; 72131; 72148; 72192; 80048; 82274; 82570; 82607; 82728; 82746; 82948; 83540; 83550; 83735; 84156; 84166; 84466; 85014; 85018; 85025; 85046; 86140; 93306; 96365; 96372; 96374; 96375; 97110; 97116; 97161; 97165; 97530; 97535; 99285; A9270; G0378; J1650; J1885; J3475

== ENCOUNTER 2021-08-05 07:04 | Outpatient (CLI) | payer MEDICARE, SELFPAY ==
[2021-08-05 07:58] LABS: Alanine Aminotransferase 14 U/L (4-35); Albumin Level 4.4 g/dL (3.5-5.1); Alkaline Phosphatase 60 U/L (38-126); Anion Gap 7 mmol/L (8-16); Aspartate Amino Transferase 31 U/L (14-36); Bilirubin,Total 0.4 mg/dL (0.2-1.3); Blood Urea Nitrogen 16 mg/dL (7-17); Calcium 9.3 mg/dL (8.4-10.2); Carbon Dioxide 30 mmol/L (22-30); Chloride 104 mmol/L (98-107); Estimated Glomerular Filt Rate > 60; Glucose 103 mg/dL (65-110); Potassium 3.9 mmol/L (3.4-5.0); Sodium 141 mmol/L (137-145)
== END 2021-08-05 07:05 | disposition home or self-care (01) ==
PROVIDERS: PCP Emergency Medicine; Visit Provider Emergency Medicine
DX: I10 Essential (primary) hypertension (principal)
CPT/HCPCS: 36415; 80053

== ENCOUNTER 2022-02-03 07:08 | Outpatient (CLI) | payer MEDICARE, SELFPAY ==
[2022-02-03 08:00] LABS: Alanine Aminotransferase 23 U/L (4-35); Albumin Level 4.3 g/dL (3.5-5.1); Alkaline Phosphatase 61 U/L (38-126); Anion Gap 6 mmol/L (8-16); Aspartate Amino Transferase 41 U/L (14-36); Bilirubin,Total 0.6 mg/dL (0.2-1.3); Blood Urea Nitrogen 16 mg/dL (7-17); Calcium 8.5 mg/dL (8.4-10.2); Carbon Dioxide 27 mmol/L (22-30); Chloride 105 mmol/L (98-107); Estimated Glomerular Filt Rate > 60; Glucose 90 mg/dL (65-110); Potassium 4.1 mmol/L (3.4-5.0); Sodium 138 mmol/L (137-145)
== END 2022-02-03 07:09 | disposition home or self-care (01) ==
PROVIDERS: PCP Emergency Medicine; Visit Provider Emergency Medicine
DX: I10 Essential (primary) hypertension (principal)
CPT/HCPCS: 36415; 80053

== ENCOUNTER 2022-08-13 07:29 | Outpatient (CLI) | payer MEDICARE, SELFPAY ==
[2022-08-13 08:24] LABS: Alanine Aminotransferase 26 U/L (6-35); Albumin Level 4.4 g/dL (3.5-5.1); Alkaline Phosphatase 49 U/L (38-126); Anion Gap 12 mmol/L (8-16); Aspartate Amino Transferase 32 U/L (14-36); Bilirubin,Total 0.5 mg/dL (0.2-1.3); Blood Urea Nitrogen 18 mg/dL (7-17); Calcium 9.2 mg/dL (8.4-10.2); Carbon Dioxide 27 mmol/L (22-30); Chloride 103 mmol/L (98-107); Estimated Glomerular Filt Rate > 60; Glucose 117 mg/dL (65-110); Potassium 3.7 mmol/L (3.4-5.0); Sodium 142 mmol/L (137-145)
[2022-08-17 23:09] LABS: Vitamin D 1,25 (OH)2 Total 98 pg/mL (18-72); Vitamin D2 1,25 (OH)2 <8 pg/mL; Vitamin D3 1,25 (OH)2 98 pg/mL
== END 2022-08-13 07:30 | disposition home or self-care (01) ==
PROVIDERS: PCP Emergency Medicine; Visit Provider Emergency Medicine
DX: E55.9 Vitamin D deficiency, unspecified (principal); I10 Essential (primary) hypertension
CPT/HCPCS: 36415; 80053; 82652

== ENCOUNTER 2023-02-11 06:50 | Outpatient (CLI) | payer MEDICARE, SELFPAY ==
[2023-02-11 07:21] LABS: Alanine Aminotransferase 23 U/L (6-35); Albumin Level 4.6 g/dL (3.5-5.1); Alkaline Phosphatase 52 U/L (38-126); Anion Gap 3 mmol/L (8-16); Aspartate Amino Transferase 37 U/L (14-36); Bilirubin,Total 0.6 mg/dL (0.2-1.3); Blood Urea Nitrogen 18 mg/dL (7-17); Calcium 9.1 mg/dL (8.4-10.2); Carbon Dioxide 31 mmol/L (22-30); Chloride 105 mmol/L (98-107); Estimated Glomerular Filt Rate > 60; Glucose 94 mg/dL (65-110); Potassium 4.3 mmol/L (3.4-5.0); Sodium 139 mmol/L (137-145)
[2023-02-14 23:36] LABS: Vitamin D 1,25 (OH)2 Total 59 pg/mL (18-72); Vitamin D2 1,25 (OH)2 <8 pg/mL; Vitamin D3 1,25 (OH)2 59 pg/mL
== END 2023-02-11 06:51 | disposition home or self-care (01) ==
LOC: ANHLAB 06:53
PROVIDERS: PCP Emergency Medicine; Visit Provider Emergency Medicine
DX: E55.9 Vitamin D deficiency, unspecified (principal); I10 Essential (primary) hypertension
CPT/HCPCS: 36415; 80053; 82652

== ENCOUNTER 2023-06-21 11:04 | Outpatient (CLI) | payer MEDICARE, SELFPAY ==
--- NOTE | ~2023-06-21 | DEXA_ITS ---
Bone Density Report Name: CURTIS PATE Age: 82 Sex: Female Ethnicity: White Date of : 1940 Indication: postmenopausal; screening for osteoporosis; height loss; prior fracture; Referring Provider: CAMRON MARIN Study: Bone densitometry was performed. Exam Date: June 21, 2023 Accession number: [id number] Bone Density: Region BMD T-score Z-score Classification AP Spine(L1-L4) 0.890 -1.4 1.3 Osteopenia Femoral Neck (Left) 0.544 -2.7 -0.4 Osteoporosis Total Hip (Left) 0.648 -2.4 -0.3 Osteopenia Femoral Neck (Right) 0.515 -3.0 -0.7 Osteoporosis Total Hip (Right) 0.646 -2.4 -0.3 Osteopenia Total Hip Mean 0.647 -2.4 -0.3 Osteopenia World Health Organization criteria for BMD impression classify patients as: Normal (T-score at or above -1.0), Osteopenia (T-score between -1.0 and -2.5), or Osteoporosis (T-score at or below -2.5). 10-year Fracture Risk: FRAX not reported because: Some T-score for Spine Total or Hip Total or Femoral Neck at or below -2.5 Prior hip or vertebral fracture Clinical Information Provided by Patient: Have had a previous hip or vertebral fracture Has had a low trauma fracture Has used the following medications: Vitamin D Patient maximum height was 59 Menopause Age: 54 Onset of menses at age 16 Number of children 2 Impression: The patient has established osteoporosis, based on the Right Femoral Neck T-score and the existence of a prior fracture. The patient has risk factors, including: previous fracture. Discussion: HIGH RISK OF FRACTURE. BONE DENSITY IS UNDESIRABLY LOW AT ONE OR MORE SKELETAL SITES, CONSISTENT WITH POSTMENOPAUSAL OSTEOPOROSIS. This patient's lowest T-score, in a patient who has previously fractured, meets the World Health Organization's (WHO) criteria for severe osteoporosis. In untreated patients, the risk of osteoporotic fracture increases approximately two-fold for each 1.0 SD decrease in T-score. Low bone density is not the only risk factor for fracture; also consider factors such as patient's age, frailty or poor health, risk of falling, risk of injury, previous osteoporotic fracture, family history of osteoporosis, cigarette smoking, low body weight, etc. Not everyone with low bone mineral density has osteoporosis; osteomalacia and other metabolic bone disorders should also be considered. Patients who have osteoporosis should be evaluated for specific diseases and conditions (secondary causes) that may cause or contribute to bone loss. The [place] [employer]ocrin[employer] (AACE) and National Osteoporosis Foundation (NOF) recommend pharmacologic intervention for all postmenopausal women with a previous hip or vertebral fracture and a T-score in this range. The patient should follow a healthful lifestyle (good nutrition with a
== END 2023-06-21 11:05 | disposition home or self-care (01) ==
LOC: ANHIMG 11:06
PROVIDERS: PCP Emergency Medicine; Visit Provider Emergency Medicine
DX: Z78.0 Asymptomatic menopausal state (principal); M85.89 Other specified disorders of bone density and structure, multiple sites; M81.0 Age-related osteoporosis without current pathological fracture
CPT/HCPCS: 77080

== ENCOUNTER 2023-08-12 08:27 | Outpatient (CLI) | payer MEDICARE, SELFPAY ==
[2023-08-12 09:40] LABS: Alanine Aminotransferase 23 U/L (6-35); Albumin Level 4.3 g/dL (3.5-5.1); Alkaline Phosphatase 49 U/L (38-126); Anion Gap 5 mmol/L (8-16); Aspartate Amino Transferase 31 U/L (14-36); Bilirubin,Total 0.6 mg/dL (0.2-1.3); Blood Urea Nitrogen 14 mg/dL (7-17); Calcium 9.3 mg/dL (8.4-10.2); Carbon Dioxide 32 mmol/L (22-30); Chloride 102 mmol/L (98-107); Estimated Glomerular Filt Rate > 60; Glucose 137 mg/dL (65-110); Sodium 139 mmol/L (137-145)
[2023-08-15 05:02] LABS: Vitamin D 1,25 (OH)2 Total 75 pg/mL (18-72); Vitamin D2 1,25 (OH)2 <8 pg/mL; Vitamin D3 1,25 (OH)2 75 pg/mL
== END 2023-08-12 08:28 | disposition home or self-care (01) ==
PROVIDERS: PCP Emergency Medicine; Visit Provider Emergency Medicine
DX: E55.9 Vitamin D deficiency, unspecified (principal); I10 Essential (primary) hypertension
CPT/HCPCS: 36415; 80053; 82652

== ENCOUNTER 2024-02-10 06:49 | Outpatient (CLI) | payer MEDICARE, SELFPAY ==
[2024-02-10 07:57] LABS: Alanine Aminotransferase 19 U/L (6-35); Albumin Level 4.4 g/dL (3.5-5.1); Alkaline Phosphatase 52 U/L (38-126); Anion Gap 3 mmol/L (4-12); Aspartate Amino Transferase 29 U/L (14-36); Bilirubin,Total 0.7 mg/dL (0.2-1.3); Blood Urea Nitrogen 24 mg/dL (7-17); Calcium 9.7 mg/dL (8.4-10.2); Carbon Dioxide 30 mmol/L (22-30); Chloride 106 mmol/L (98-107); Estimated Glomerular Filt Rate 60; Glucose 98 mg/dL (65-110); Potassium 4.2 mmol/L (3.4-5.0); Sodium 139 mmol/L (137-145)
[2024-02-10 09:06] LABS: Vitamin D 25 Hydroxy 55.7 ng/mL
== END 2024-02-10 06:50 | disposition home or self-care (01) ==
LOC: ANHLAB 06:51
PROVIDERS: PCP Emergency Medicine; Visit Provider Emergency Medicine
DX: E55.9 Vitamin D deficiency, unspecified (principal); I10 Essential (primary) hypertension
CPT/HCPCS: 36415; 80053; 82306

== ENCOUNTER 2024-07-31 07:40 | Outpatient (CLI) | payer MEDICARE, SELFPAY ==
--- NOTE | ~2024-07-31 | MM_ITS ---
EXAMINATION: MM screening codi BI w loren HISTORY: Screening TECHNIQUE: Craniocaudal and mediolateral oblique 3-D tomosynthesis images were obtained and synthetic 2-D images were generated. CAD analysis was submitted and interpreted. COMPARISON: Comparison to multiple prior studies sequentially, with oldest reviewed study dated 08/29. BREAST PARENCHYMAL COMPOSITION: Not dense: There are scattered areas of fibroglandular density. FINDINGS: There is no evidence of suspicious mass, calcification, or architectural distortion to sugg est malignancy in either breast. There has been no suspicious interval change. IMPRESSION: 1. No mammographic evidence of malignancy. 2. Recommend routine screening mammography in one year. BI-RADS Category 1: Negative Reviewed, dictated and finalized at location B.
== END 2024-07-31 07:41 | disposition home or self-care (01) ==
LOC: ANHIMG 07:41
PROVIDERS: PCP Emergency Medicine; Visit Provider Emergency Medicine
DX: Z12.31 Encounter for screening mammogram for malignant neoplasm of breast (principal)
CPT/HCPCS: 77063; 77067

== ENCOUNTER 2024-08-10 07:58 | Outpatient (CLI) | payer MEDICARE, SELFPAY ==
[2024-08-10 08:43] LABS: Alanine Aminotransferase 21 U/L (6-35); Albumin Level 4.2 g/dL (3.5-5.1); Alkaline Phosphatase 57 U/L (38-126); Anion Gap 6 mmol/L (4-12); Aspartate Amino Transferase 34 U/L (14-36); Bilirubin,Total 0.6 mg/dL (0.2-1.3); Blood Urea Nitrogen 12 mg/dL (7-17); Calcium 9.3 mg/dL (8.4-10.2); Carbon Dioxide 30 mmol/L (22-30); Chloride 100 mmol/L (98-107); Estimated Glomerular Filt Rate > 60; Glucose 97 mg/dL (65-110); Potassium 3.7 mmol/L (3.4-5.0); Sodium 136 mmol/L (137-145)
[2024-08-10 09:30] LABS: Vitamin D 25 Hydroxy 66.7 ng/mL
== END 2024-08-10 07:59 | disposition home or self-care (01) ==
LOC: ANHLAB 08:00
PROVIDERS: PCP Emergency Medicine; Visit Provider Emergency Medicine
DX: E55.9 Vitamin D deficiency, unspecified (principal); I10 Essential (primary) hypertension
CPT/HCPCS: 36415; 80053; 82306

== ENCOUNTER 2025-02-08 07:26 | Outpatient (CLI) | payer MEDICARE, SELFPAY ==
--- OUTSIDE RECORDS SUMMARY | 2025-02-08 07:30 | XMS_ITS | Clinical Summary ---
Author Organization [facility] Address [facility] [place] [address] Care Team Providers Care Cyber Engineer Name Role Phone Unavailable Primary Care Provider Unavailabl e Social History Tobacco Use Types Packs/Day Years Used Date Smoking Tobacco: Never Assessed Comments Unknown Sex and Gender Information Value Date Recorded Sex Assigned at Not on file Legal Sex Female 4:46 PM CDT Gender Identity Not on file Sexual Orientation Not on file Plan of Treatment Health Maintenance Due Date Last Done Comments DTaP, Tdap and Td Vaccines ( 1 - Tdap) 1961 Zoster Vaccines (1 of 2) 1992 Dexa Scan (General) 2007 Pneumococcal Vaccine: 50+ Ye ars (1 of 1 - PCV) 2007 RSV Immunization or 60+ Years (1 - 1-dose 75+ series) 2017 COVID-19 Vaccine ( - 2023-2 5 season) 2024 Meningococcal B Vaccine Aged Out No l onger eligible based on patient's age to complete this topic Meningococcal Vaccine Aged Out No imtiaz archie eligible based on patient's age to complete this topic RSV Immunizations Under 20 Months Aged Out No longer eligible based on patient's age to complete this topic
[2025-02-08 07:51] LABS: Alanine Aminotransferase 20 U/L (6-35); Albumin Level 4.2 g/dL (3.5-5.1); Alkaline Phosphatase 49 U/L (38-126); Anion Gap 6 mmol/L (4-12); Aspartate Amino Transferase 37 U/L (14-36); Bilirubin,Total 0.7 mg/dL (0.2-1.3); Blood Urea Nitrogen 17 mg/dL (7-17); Calcium 9.4 mg/dL (8.4-10.2); Carbon Dioxide 32 mmol/L (22-30); Chloride 102 mmol/L (98-107); Estimated Glomerular Filt Rate 58; Glucose 88 mg/dL (65-110); Sodium 140 mmol/L (137-145)
[2025-02-08 08:54] LABS: Vitamin D 25 Hydroxy 74.7 ng/mL
== END 2025-02-08 07:27 | disposition home or self-care (01) ==
PROVIDERS: PCP Emergency Medicine; Visit Provider Emergency Medicine
DX: E55.9 Vitamin D deficiency, unspecified (principal); E78.5 Hyperlipidemia, unspecified
CPT/HCPCS: 36415; 80053; 82306

== ENCOUNTER 2025-08-10 07:33 | Outpatient (CLI) | payer MEDICARE, SELFPAY ==
--- OUTSIDE RECORDS SUMMARY | 2025-08-10 07:37 | XMS_ITS | Clinical Summary ---
Author Organization [facility] Address [address] [place] [id number] Care Team Providers Care Gum Scoring Machine Operator Name Role Phone Unavailable Primary Care Provider [...] Td Vaccines ( 1 - Tdap) 1961 Pneumococcal Vaccine: 50+ Ye ars (1 of 1 - PCV) 1992 Zoster Vaccines (1 of 2) 1992 Dexa Scan (General) 2007 RSV Immunization or 60+ Years (1 - 1-dose 75+ series) 2017 COVID-19 Vaccine (2023-2 5 season) 2025 Influenza Adult (#1) 2025 Meningococcal B Vaccine Aged Out No l onger eligible based on patient's age to complete this topic Meningococcal Vaccine Aged Out No imtiaz archie eligible based on patient's age to complete this topic RSV Immunizations Under 20 Months Aged Out No longer eligible based on patient's age to complete this topic
[2025-08-10 08:49] LABS: Hematocrit 50.3 % (37.0-47.0); Hemoglobin 15.3 g/dL (12.0-15.0); Immature Granulocyte Percent A 1.2 % (0-0.5); Immature Platelet Fraction Pct 12.2 % (0.9-11.2); Lymphocytes Absolute Auto 2.92 K/mm3 (0.9-3.2); Mean Corpuscular HGB Conc 30.4 g/dl (32-36); Mean Corpuscular Hemoglobin 26.0 pg (26-34); Mean Corpuscular Volume 85.5 fl (80-100); Nucleated Red Blood Cells Absolute Auto 0.020 K/mm3 (0.0-0.012); Nucleated Red Blood Cells Perc 0.2 % (0.0-0.2); Platelet Count Result 228 k/mm3 (150-375); Red Blood Count 5.88 M/mm3 (4.2-5.4); White Blood Count 12.6 K/mm3 (4.5-10.0)
[2025-08-10 09:21] LABS: Alanine Aminotransferase 16 U/L (6-35); Albumin Level 4.1 g/dL (3.5-5.1); Alkaline Phosphatase 56 U/L (38-126); Anion Gap 6 mmol/L (4-12); Aspartate Amino Transferase 40 U/L (14-36); Bilirubin,Total 0.7 mg/dL (0.2-1.3); Blood Urea Nitrogen 13 mg/dL (7-17); Calcium 9.1 mg/dL (8.4-10.2); Carbon Dioxide 28 mmol/L (22-30); Chloride 101 mmol/L (98-107); Estimated Glomerular Filt Rate 59; Glucose 87 mg/dL (65-110); Potassium 4.2 mmol/L (3.4-5.0); Sodium 135 mmol/L (137-145); Total Protein 7.6 g/dL (6.3-8.2)
== END 2025-08-10 07:34 | disposition home or self-care (01) ==
LOC: ANHLAB 07:35
PROVIDERS: PCP Emergency Medicine; Visit Provider Emergency Medicine
DX: E78.5 Hyperlipidemia, unspecified (principal); E55.9 Vitamin D deficiency, unspecified; I10 Essential (primary) hypertension
CPT/HCPCS: 36415; 80053; 82306; 85025; 85055

== ENCOUNTER 2025-08-17 07:56 | Outpatient (CLI) | payer MEDICARE, SELFPAY ==
--- OUTSIDE RECORDS SUMMARY | 2025-08-17 08:05 | XMS_ITS | Clinical Summary ---
Author Organization [facility] Address [address] [place] [id number] Care Team Providers Care Installer Apprentice Name Role Phone Unavailable Primary Care Provider [...] COVID-19 Vaccine ( - 2023-2 5 season) 2025 Influenza Adult (#1) 2025 Hepatitis A Vaccines Aged Out No long er eligible based on patient's age to complete this topic Meningococcal B Vaccine Aged Out No l onger eligible based on patient's age to complete this topic Meningococcal Vaccine Aged Out No imtiaz archie eligible based on patient's age to complete this topic RSV Immunizations Under 20 Months Aged Out No longer eligible based on patient's age to complete this topic
[2025-08-17 08:24] LABS: Hematocrit 47.8 % (37.0-47.0); Hemoglobin 14.5 g/dL (12.0-15.0); Immature Granulocyte Percent A 1.3 % (0-0.5); Immature Platelet Fraction Pct 11.5 % (0.9-11.2); Lymphocytes Absolute Auto 2.38 K/mm3 (0.9-3.2); Mean Corpuscular HGB Conc 30.3 g/dl (32-36); Mean Corpuscular Hemoglobin 25.9 pg (26-34); Mean Corpuscular Volume 85.5 fl (80-100); Nucleated Red Blood Cells Absolute Auto 0.020 K/mm3 (0.0-0.012); Nucleated Red Blood Cells Perc 0.2 % (0.0-0.2); Platelet Count Result 219 k/mm3 (150-375); Red Blood Count 5.59 M/mm3 (4.2-5.4); White Blood Count 12.0 K/mm3 (4.5-10.0)
== END 2025-08-17 07:57 | disposition home or self-care (01) ==
PROVIDERS: PCP Emergency Medicine; Visit Provider Emergency Medicine
DX: D64.9 Anemia, unspecified (principal)
CPT/HCPCS: 36415; 85025; 85055

== ENCOUNTER 2025-08-19 08:05 | Outpatient (CLI) | payer MEDICARE, SELFPAY ==
[2025-08-19 09:49] LABS: Thyroid Stimulating Hormone 3.400 uIU/mL (0.465-4.680)
== END 2025-08-19 08:06 | disposition home or self-care (01) ==
LOC: ANHLAB 08:05
PROVIDERS: PCP Emergency Medicine; Visit Provider Emergency Medicine
DX: R53.83 Other fatigue (principal)
CPT/HCPCS: 36415; 84443